=== PATIENT | male | born 1945 | race Caucasian/White ===

== ENCOUNTER 2021-01-03 09:19 | Inpatient (IN) | payer MEDICARE, SELFPAY ==
[2021-01-03] VITALS (66 sets, daily range): BP systolic 100–178; BP diastolic 56–92; PULSE 55–76; RESP 8–61; TEMP 36–38.4; O2SAT 97–100; BMI 21.9
--- NOTE | 2021-01-03 09:23 | DI.RAD.S_ITS ---
PROCEDURE: XR CHEST 1V INDICATIONS: intubation TECHNIQUE: One view of the chest was acquired. COMPARISON: [facility], , CHEST 1 VIEW, 06/26/2015, 10:54. FINDINGS: Surgical changes and devices: ETT tip is roughly 30 mm above the joshua. NGT is present, tip of which is in the gastric lumen. Lungs and pleura: Lungs are clear. No pleural effusions or pneumothorax. Mediastinum: Mediastinal contours appear normal. Heart size is normal. Bones and chest wall: No suspicious bony lesions. Overlying soft tissues appear unremarkable. IMPRESSION: No acute process. Dictated by: Anupama Lopez M.D. on 01/03/2021 at 9:46 Approved by: Anupama Lopez M.D. on 01/03/2021 at 9:47
--- NOTE | 2021-01-03 09:35 | ED_ITS ---
HPI - Overdose General Chief Complaint: Toxicology Problem Stated Complaint: Suicide attempt Time Seen by Provider: 01/03/21 09:21 Source: EMS Mode of arrival: EMS Limitations: physical limitation History of Present Illness HPI Narrative: Patient is a 75-year-old male who presents is are as a suicide attempt along with his . They both split a bottle of Xanax 0.5 mg he took his 15-16 tablets at around midnight and then went into the garage and turned on his car. The woke up, however he did not and she called 911. He has no prior history of depression or suicide attempt. Patient had a GCS of 6 on the scene and was immediately intubated. complaint: intentional overdose Related Data Home Medications Medication Instructions Recorded Confirmed No Known Home Medications 01/03/21 01/03/21 Allergies Allergy/AdvReac Type Severity Reaction Status Date / Time No Known Drug Allergies Allergy Unknown Unverified 01/15/18 12:34 Review of Systems Review of Systems ROS Unobtainable: Unobtainable due to medical condition Patient History Medical History (Updated 01/03/21 @ 18:37 by Nany Ventura MD) Hypertension Family History (Updated 01/03/21 @ 18:38 by Nany Ventura MD) Other Patient unable to provide medical history Social History household members: spouse Smoking Status: Unknown if ever smoked Smoking Status: Unknown if ever smoked Exam Initial Vital Signs Initial Vital Signs: Vital Signs Pulse Rate 66 01/03/21 09:20 Respiratory Rate 16 01/03/21 09:20 Gen.: The patient is intubated, unresponsive HEENT: Head is atraumatic face symmetric Neck: No JVD trachea midline Lungs: Breath sounds equal bilaterally good chest rise Cardiac: Regular rate and rhythm no murmur Abdomen: Soft nontender Extremities: Peripheral pulses intact no bony deformities Neurologic: Intubated Course Orders Ordered: ED Orders 01/03/21 10:37 Carboxyhemoglobin Stat Acetaminophen (Acetaminophen 650 Mg Supp) 650 mg OK Q6HR PRN PRN Reason: Fever Bisacodyl (Bisacodyl 10 Mg Supp) 10 mg OK DAILY PRN PRN Reason: Constipation Enoxaparin Sodium (Enoxaparin 40 Mg/0.4 Ml Syringe) 40 mg SUBCUT DAILY [facility] Last Admin: 01/03/21 14:22 Dose: 40 mg Documented by: FELIPE Sodium Chloride (Normal Saline 0.9%) 1,000 mls @ 150 mls/hr IV CONT SARA Last Infusion: 01/03/21 12:03 Dose: 150 mls/hr Documented by: Admin: 01/03/21 09:36 Dose: 150 mls/hr Documented by: JIM Dextrose/Sodium Chloride (Dextrose 5%-0.45% Ns) 1,000 mls @ 100 mls/hr IV CONT SARA Last Admin: 01/03/21 13:36 Dose: 100 mls/hr Documented by: FELIPE Fentanyl 1,000 mcg/ Dextrose 250 mls @ 12.145 mls/hr IV TITRATE SARA; Protocol Last Titration: 01/03/21 17:57 Dose: 0 mcg/kg/hr, 0 mls/hr Documented by: Titration: 01/03/21 16:08 Dose: 0.35 mcg/kg/hr, 6.073 mls/hr Documented by: Titration: 01/03/21 14:25 Dose: 0 mcg/kg/hr, 0 mls/hr Documented by: Titration: 01/03/21 14:13 Dose: 0.5 mcg/kg/hr, 8.675 mls/hr Documented by: Admin: 01/03/21 13:39 Dose: 0.7 mcg/kg/hr, 12.1 mls/hr Documented by: FELIPE Lorazepam 20 mg/ Sodium (Chloride) 100 mls @ 3.47 mls/hr IV TITRATE SARA; Protocol Last Titration: 01/03/21 17:58 Dose: 0 mg/kg/hr, 0 mls/hr Documented by: Titration: 01/03/21 17:41 Dose: 0.01 mg/kg/hr, 3.47 mls/hr Documented by: Titration: 01/03/21 14:25 Dose: 0 mg/kg/hr, 0 mls/hr Documented by: Admin: 01/03/21 12:30 Dose: 0.01 mg/kg/hr, 3.47 mls/hr Documented by: FELIPE Famotidine (Pepcid) 20 mg in 50 mls @ 200 mls/hr IV Q12HR SARA Propofol (Propofol) 1,000 mg in 100 mls @ 2.082 mls/hr IV TITRATE SARA; Protocol Last Titration: 01/03/21 19:03 Dose: 3.5 mcg/kg/min, 1.457 mls/hr Documented by: Admin: 01/03/21 16:14 Dose: 2.5 mcg/kg/min, 1.041 mls/hr Documented by: FELIPE Labetalol HCl (Labetalol 20 Mg/4 Ml Syringe) 10 mg IV Q4HR PRN PRN Reason: SBP over 170 Naloxone HCl (Naloxone 0.4 Mg/Ml Vial) 0.2 mg IV Q2MIN PRN PRN Reason: Opiate Reversal Discontinued Medications Fentanyl 1,000 mcg/ Dextrose 250 mls @ 12.145 mls/hr IV TITRATE SARA; Protocol Last Titration: 01/03/21 12:03 Dose: 0.7 mcg/kg/hr, 12.145 mls/hr Documented by: Admin: 01/03/21 10:10 Dose: 0.7 mcg/kg/hr, 12.145 mls/hr Documented by: JIM Lorazepam 20 mg/ Sodium (Chloride) 110 mls @ 3.817 mls/hr IV TITRATE SARA; Protocol Last Titration: 01/03/21 12:33 Dose: 0.01 mg/kg/hr, 3.8 mls/hr Documented by: Titration: 01/03/21 12:03 Dose: 0.01 mg/kg/hr, 3.817 mls/hr Documented by: Admin: 01/03/21 10:20 Dose: 0.01 mg/kg/hr, 3.817 mls/hr Documented by: JIM Vital Signs Vital signs: Vital Signs - 8 hr 01/03/21 09:24 01/03/21 09:32 01/03/21 09:35 Temperature 96.8 F L Pulse Rate 75 69 63 Respiratory Rate 16 22 29 H Blood Pressure 155/92 H 140/77 Pulse Oximetry 99 99 01/03/21 09:40 01/03/21 09:45 01/03/21 09:50 Temperature 97.3 F L Pulse Rate 64 65 61 Respiratory Rate 23 22 23 Blood Pressure 131/75 129/75 145/72 H Pulse Oximetry 99 99 99 01/03/21 09:55 Temperature 97.7 F Pulse Rate 62 Respiratory Rate 19 Blood Pressure 119/72 Pulse Oximetry 100 MDM - Overdose Lab Data Attestation: I reviewed the patient's lab results. Result diagrams: 01/03/21 13:17 01/03/21 13:17 Labs: Lab Results 01/03/21 01/03/21 01/03/21 Range/Units 09:31 09:35 09:35 WBC 9.6 (4.5-11.0) X10^3/uL RBC 3.89 L (4.5-5.9) X10^6/uL Hgb 12.8 L (13.5-17.5) g/dL Hct 38.1 L (41-53) % MCV 97.9 (80-100) fL MCH 32.9 (26-34) PG MCHC 33.6 (30-36) % RDW 12.6 (11.6-14.8) % Plt Count 171 (150-400) X10^3/uL Neut % (Auto) 87.7 H (50-75) % Lymph % (Auto) 5.0 L (25-40) % [facility] % (Auto) 6.9 (3-14) % Eos % (Auto) 0.1 L (2-4) % Baso % (Auto) 0.3 (0-2) % Neut # (Auto) 8400 H (1915-4393) /uL Lymph # (Auto) 500 L (0276-5948) /uL [facility] # (Auto) 700 (0-900) /uL Eos # (Auto) 0 (0-450) /uL Baso # (Auto) 0 (0-100) /uL ABG pH 7.39 (7.35-7.45) ABG pCO2 47.8 H (35-45) mmHg ABG pO2 563 H* (80-100) mmHg ABG HCO3 29 H (22-26) mmol/L ABG Total CO2 30 (21-31) mmol/L ABG O2 Saturation 100 (95-100) % ABG Base Excess 4.0 H (-2-2) mmol/L FiO2 100 Sodium (137-145) mmol/L Potassium (3.4-5.1) mmol/L Chloride (98-107) mmol/L Carbon Dioxide (22-32) mmol/L BUN (9-20) mg/dL Creatinine (0.66-1.25) mg/dL Estimated GFR (>60) mL/min BUN/Creatinine Ratio (6-22) Glucose (80-110) mg/dL Lactate (0.7-2.1) mmol/L Calcium (8.4-10.2) mg/dL Total Bilirubin (0.2-1.3) mg/dL AST (17-59) IU/L ALT (<50) IU/L Alkaline Phosphatase (38-126) U/L Total Creatine Kinase 100 (55-170) U/L CK-MB (CK-2) TNP CK-MB (CK-2) Rel Index TNP Troponin I < 0.012 (0.01-0.034) ng/mL Total Protein (6.3-8.2) g/dL Albumin (3.5-5.0) g/dL Globulin (1.7-4.1) g/dL Albumin/Globulin Ratio (1.0-2.8) Lipase 81 (23-300) U/L Salicylates (<20) mg/dL U Opiates 300ng/mL cut (Negative) Ur Oxycodone Screen (Negative) Urine Methadone Screen (Negative) Acetaminophen (10-30) ug/mL Ur Barbiturates Screen (Negative) U Tricyclic Antidepress (Negative) Ur Phencyclidine Scrn (Negative) Ur Amphetamines Screen (Negative) U Methamphetamines Scrn (Negative) Ur MDMA Scrn (Ecstasy) (Negative) U Benzodiazepines Scrn (Negative) Urine Cocaine Screen (Negative) U Marijuana (THC) Screen (Negative) Ethyl Alcohol ( - 10) mg/dL SARS-CoV-2 (PCR) (Negative) 01/03/21 01/03/21 01/03/21 Range/Units 09:35 09:44 09:44 WBC (4.5-11.0) X10^3/uL RBC (4.5-5.9) X10^6/uL Hgb (13.5-17.5) g/dL Hct (41-53) % MCV (80-100) fL MCH (26-34) PG MCHC (30-36) % RDW (11.6-14.8) % Plt Count (150-400) X10^3/uL Neut % (Auto) (50-75) % Lymph % (Auto) (25-40) % [facility] % (Auto) (3-14) % Eos % (Auto) (2-4) % Baso % (Auto) (0-2) % Neut # (Auto) (1437-3527) /uL Lymph # (Auto) (8257-6761) /uL [facility] # (Auto) (0-900) /uL Eos # (Auto) (0-450) /uL Baso # (Auto) (0-100) /uL ABG pH (7.35-7.45) ABG pCO2 (35-45) mmHg ABG pO2 (80-100) mmHg ABG HCO3 (22-26) mmol/L ABG Total CO2 (21-31) mmol/L ABG O2 Saturation (95-100) % ABG Base Excess (-2-2) mmol/L FiO2 Sodium 136 L (137-145) mmol/L Potassium 4.7 (3.4-5.1) mmol/L Chloride 105 (98-107) mmol/L Carbon Dioxide 26 (22-32) mmol/L BUN 19 (9-20) mg/dL Creatinine 0.96 (0.66-1.25) mg/dL Estimated GFR > 60.0 (>60) mL/min BUN/Creatinine Ratio 19.8 (6-22) Glucose 118 H (80-110) mg/dL Lactate (0.7-2.1) mmol/L Calcium 9.4 (8.4-10.2) mg/dL Total Bilirubin 0.6 (0.2-1.3) mg/dL AST 26 (17-59) IU/L ALT 14 (<50) IU/L Alkaline Phosphatase 66 (38-126) U/L Total Creatine Kinase (55-170) U/L CK-MB (CK-2) CK-MB (CK-2) Rel Index Troponin I (0.01-0.034) ng/mL Total Protein 6.8 (6.3-8.2) g/dL Albumin 4.0 (3.5-5.0) g/dL Globulin 2.8 (1.7-4.1) g/dL Albumin/Globulin Ratio 1.4 (1.0-2.8) Lipase (23-300) U/L Salicylates < 1.0 (<20) mg/dL U Opiates 300ng/mL cut (Negative) Ur Oxycodone Screen (Negative) Urine Methadone Screen (Negative) Acetaminophen < 10 L (10-30) ug/mL Ur Barbiturates Screen (Negative) U Tricyclic Antidepress (Negative) Ur Phencyclidine Scrn (Negative) Ur Amphetamines Screen (Negative) U Methamphetamines Scrn (Negative) Ur MDMA Scrn (Ecstasy) (Negative) U Benzodiazepines Scrn (Negative) Urine Cocaine Screen (Negative) U Marijuana (THC) Screen (Negative) Ethyl Alcohol < 10 ( - 10) mg/dL SARS-CoV-2 (PCR) Negative Negative (Negative) 01/03/21 01/03/21 Range/Units 09:49 09:53 WBC (4.5-11.0) X10^3/uL RBC (4.5-5.9) X10^6/uL Hgb (13.5-17.5) g/dL Hct (41-53) % MCV (80-100) fL MCH (26-34) PG MCHC (30-36) % RDW (11.6-14.8) % Plt Count (150-400) X10^3/uL Neut % (Auto) (50-75) % Lymph % (Auto) (25-40) % [facility] % (Auto) (3-14) % Eos % (Auto) (2-4) % Baso % (Auto) (0-2) % Neut # (Auto) (6253-7089) /uL Lymph # (Auto) (5846-0990) /uL [facility] # (Auto) (0-900) /uL Eos # (Auto) (0-450) /uL Baso # (Auto) (0-100) /uL ABG pH (7.35-7.45) ABG pCO2 (35-45) mmHg ABG pO2 (80-100) mmHg ABG HCO3 (22-26) mmol/L ABG Total CO2 (21-31) mmol/L ABG O2 Saturation (95-100) % ABG Base Excess (-2-2) mmol/L FiO2 Sodium (137-145) mmol/L Potassium (3.4-5.1) mmol/L Chloride (98-107) mmol/L Carbon Dioxide (22-32) mmol/L BUN (9-20) mg/dL Creatinine (0.66-1.25) mg/dL Estimated GFR (>60) mL/min BUN/Creatinine Ratio (6-22) Glucose (80-110) mg/dL Lactate 0.9 (0.7-2.1) mmol/L Calcium (8.4-10.2) mg/dL Total Bilirubin (0.2-1.3) mg/dL AST (17-59) IU/L ALT (<50) IU/L Alkaline Phosphatase (38-126) U/L Total Creatine Kinase (55-170) U/L CK-MB (CK-2) CK-MB (CK-2) Rel Index Troponin I (0.01-0.034) ng/mL Total Protein (6.3-8.2) g/dL Albumin (3.5-5.0) g/dL Globulin (1.7-4.1) g/dL Albumin/Globulin Ratio (1.0-2.8) Lipase (23-300) U/L Salicylates (<20) mg/dL U Opiates 300ng/mL cut Negative (Negative) Ur Oxycodone Screen Negative (Negative) Urine Methadone Screen Negative (Negative) Acetaminophen (10-30) ug/mL Ur Barbiturates Screen Negative (Negative) U Tricyclic Antidepress Negative (Negative) Ur Phencyclidine Scrn Negative (Negative) Ur Amphetamines Screen Negative (Negative) U Methamphetamines Scrn Negative (Negative) Ur MDMA Scrn (Ecstasy) Negative (Negative) U Benzodiazepines Scrn Positive H (Negative) Urine Cocaine Screen Negative (Negative) U Marijuana (THC) Screen Negative (Negative) Ethyl Alcohol ( - 10) mg/dL SARS-CoV-2 (PCR) (Negative) Imaging Data Chest x-ray: Radiologist's Impression: PROCEDURE: XR CHEST 1V INDICATIONS: intubation TECHNIQUE: One view of the chest was acquired. COMPARISON: [facility], CHEST 1 VIEW, 06/26/2015, 10:54. FINDINGS: Surgical changes and devices: ETT tip is roughly 30 mm above the joshua. NGT is present, tip of which is in the gastric lumen. Lungs and pleura: Lungs are clear. No pleural effusions or pneumothorax. Mediastinum: Mediastinal contours appear normal. Heart size is normal. Bones and chest wall: No suspicious bony lesions. Overlying soft tissues appear unremarkable. IMPRESSION: No acute process. Dictated by: Anupama Lopez M.D. on 01/03/2021 at 9:46 ECG Data Attestation: I personally reviewed and interpreted this ECG as follows: Prior ECG tracings: not available for review Interpretation: Normal sinus rhythm rate 65 p.r. interval 154 QRS is. QTC [address] changes similar to previous EKG in 2015 MDM Narrative Medical decision making narrative: The patient is intubated in median placed on 100% FiO2. His finger carboxyhemoglobin is initially 9 point a glioma as high as 12. He certainly has a mixed picture of carbon monoxide poisoning and benzodiazepine overdose. Poison control was contacted they recommended talking to Eve shahid in regards to hyperbaric therapy,. Dr. [place], Eve shahid hyperbaric physician updated on patient's symptoms test results. At this time it is not recommended that patient have hyperbaric therapy and it is recommended that he continue 100% FiO2 for 4-6 hours and then have it weaned. Dr. ventura updated on patient's symptoms and recommendations and happily accepts patient Patient initially was placed on propofol however you can have seizures with carbon monoxide poisoning so he was changed to fentanyl and Ativan drip. Critical Care Time Critical Care Time Critical Care Time: Yes Total Critical Care Time: 60 Attestation: The high probability of a clinically significant, sudden or life threatening deterioration of the [cardiovascular] system(s) required my full and direct attention, intervention and personal management. The aggregate critical care time was [45] minutes. This time is in addition to time spent performing reported procedures but includes the following: [x] Data Review and interpretation [x] Patient assessment and monitoring of vital signs [x] Documentation [x] Medication orders and management Discharge Plan Departure Patient Disposition: Admitted As Inpatient Clinical Impression: Suicide attempt Carbon monoxide poisoning, suicide attempt Qualifiers: Encounter type: initial encounter Qualified Code(s): T58.92XA - Toxic effect of carbon monoxide from unspecified source, intentional self-harm, initial encounter Benzodiazepine overdose Qualifiers: Encounter type: initial encounter Injury intent: intentional self-harm Qualified Code(s): T42.4X2A - Poisoning by benzodiazepines, intentional self- harm, initial encounter Admit Date/Time: 01/03/21 10:33 Admit Provider: Nany Ventura
[2021-01-03] MEDS: SODIUM CHLORIDE 0.9% 1,000 ML 150 ML IV (09:36)
[2021-01-03] MEDS: propofoL 1,000 MG/100 ML VIAL 4.1 MG IV (09:36)
[2021-01-03 09:40] LABS: Add Manual Diff / Slide Review NO; Basophils Absolute Auto 0 /uL (0-100); Basophils Percent Auto 0.3 % (0-2); Eosinophils Absolute Auto 0 /uL (0-450); Eosinophils Percent Auto 0.1 % (2-4); Hematocrit 38.1 % (41-53); Hemoglobin 12.8 g/dL (13.5-17.5); Lymphocytes Absolute Auto 500 /uL (1100-4500); Mean Corpuscular HGB Conc 33.6 % (30-36); Mean Corpuscular Hemoglobin 32.9 PG (26-34); Mean Corpuscular Volume 97.9 fL (80-100); Monocytes Absolute Auto 700 /uL (0-900); Monocytes Percent Auto 6.9 % (3-14); Neutrophils Absolute Auto 8400 /uL (1500-7000); Neutrophils Percent Auto 87.7 % (50-75); Platelet Count 171 X10^3/uL (150-400); Red Blood Cell Count 3.89 X10^6/uL (4.5-5.9); Red Cell Distribution Width 12.6 % (11.6-14.8); White Blood Cell Count 9.6 X10^3/uL (4.5-11.0)
[2021-01-03 09:41] LABS: Fractionated Inspired Oxygen 100; HCO3 ABG 29 mmol/L (22-26); Oxygen Saturation ABG 100 % (95-100); PCO2 ABG 47.8 mmHg (35-45); PO2 ABG 563 mmHg (80-100); TCO2 ABG 30 mmol/L (21-31); pH ABG 7.39 (7.35-7.45)
[2021-01-03 10:00] LABS: Acetaminophen < 10 ug/mL (10-30); Alanine Aminotransferase 14 IU/L (<50); Albumin Globulin Ratio 1.4 (1.0-2.8); Alkaline Phosphatase 66 U/L (38-126); Aspartate Aminotransferase 26 IU/L (17-59); BUN Creatinine Ratio 19.8 (6-22); Bilirubin Total 0.6 mg/dL (0.2-1.3); Blood Urea Nitrogen 19 mg/dL (9-20); Calcium 9.4 mg/dL (8.4-10.2); Carbon Dioxide 26 mmol/L (22-32); Chloride 105 mmol/L (98-107); Creatine Kinase 100 U/L (55-170); Estimated Glomerular Filt Rate > 60.0 mL/min (>60); Ethanol (ETOH) < 10 mg/dL; Globulin 2.8 g/dL (1.7-4.1); Glucose 118 mg/dL (80-110); HEMOLYSIS < 15 (0-50); Lipase 81 U/L (23-300); Potassium 4.7 mmol/L (3.4-5.1); Salicylate < 1.0 mg/dL (<20); Sodium 136 mmol/L (137-145); Total Protein 6.8 g/dL (6.3-8.2)
[2021-01-03 10:01] LABS: COVID19 -Nasal RAPID Negative (Negative)
[2021-01-03 10:04] LABS: Ur Creatinine Normal (Normal); Ur Specific Gravity Normal (Normal); Urine Tetrahydrocannabinol Negative (Negative); Urine pH Normal (Normal)
[2021-01-03 10:05] LABS: UR Morphine/Opiate cutoff 300 Negative (Negative); Urine Amphetamines Negative (Negative); Urine Barbiturates Negative (Negative); Urine Benzodiazepines Positive (Negative); Urine Cocaine Negative (Negative); Urine MDMA Negative (Negative); Urine Methadone Negative (Negative); Urine Methamphetamines Negative (Negative); Urine Oxycodone Negative (Negative); Urine Phencyclidine Negative (Negative); Urine Tricyclic Antidepressant Negative (Negative)
[2021-01-03] MEDS: fentaNYL 1,000 MCG in DEXTROSE 5% IN WATER 230 ML 12.145 ML IV (10:10)
[2021-01-03 10:11] LABS: Troponin I < 0.012 ng/mL (0.01-0.034)
[2021-01-03 10:20] LABS: Lactate (Lactic Acid) 0.9 mmol/L (0.7-2.1)
[2021-01-03] MEDS: LORazepam 20 MG in SODIUM CHLORIDE 0.9% 100 ML IV (10:20)
[2021-01-03 10:40] LABS: COVID19 - ADMIT (NP swab/PCR) Negative (Negative)
--- NOTE | 2021-01-03 11:02 | RT ---
Patient intubated on arrival 8.0 tube, 25 at the lip verified by xray, and capnography. Initial vent settings Vt 420, R 16, FIO2 100%, PEEP +5, I-time 1:3.7, PIP 15, MAP 8. Arterial blood gas obtained per right radial PH 7.39, CO2 47, PO2 563, HCO3 29, BE 4.0. Rate increased to 18 per CO2 on ABG. Lab judy venous blood to send to [facility] for carbon monoxide sample per [facility] lab request ([facility] lab prefers venous blood for stability) at 10:20 right hand, sample put on ice and sent with lab carrier. [facility] respiratory department Brendon contacted to follow through with lab on results, given ED fax and RT cell to report results.
--- NOTE | 2021-01-03 11:15 | PC.NURSE ---
Propofol titrated down to 5 mcg/kg/hr @ 1045 hrs.
--- NOTE | 2021-01-03 11:41 | PC.NURSE ---
Propofol titrated down to 2.5 mcg/kg/hr @ 1142 hrs.
--- NOTE | 2021-01-03 11:43 | PC.NURSE ---
Received permission from Cata to call her family. Contacted Opal (dtr) and Juan (son). Updated them on pt condition. Opal is en route.
--- NOTE | 2021-01-03 11:52 | CM.DPC ---
Addendum entered by MATEO Soriano 01/05/21 08:48: Chart Review 4..; This note appears to be made in error. JW Original Note: DCP Discharge Home Per MD, pt is medically stable to d/c home today with no identified barriers to discharge. Per RN, no concerns at this time and Dtr to provide transport home today. Due to triage needs and no identified concerns, SW unable to meet again with pt prior to d/c home. Plan: Patient to d/c home today via Dtr POV and no further SW needs at this time. MATEO Lee
--- NOTE | 2021-01-03 12:08 | PC.NURSE ---
poison controll updated
[2021-01-03] MEDS: LORazepam 20 MG in SODIUM CHLORIDE 0.9% 90 ML IV (12:30)
[2021-01-03 13:34] LABS: Add Manual Diff / Slide Review NO; Basophils Absolute Auto 0 /uL (0-100); Basophils Percent Auto 0.5 % (0-2); Eosinophils Absolute Auto 0 /uL (0-450); Eosinophils Percent Auto 0.1 % (2-4); Hemoglobin 12.1 g/dL (13.5-17.5); Lymphocytes Absolute Auto 500 /uL (1100-4500); Mean Corpuscular HGB Conc 33.6 % (30-36); Mean Corpuscular Hemoglobin 32.9 PG (26-34); Mean Corpuscular Volume 97.9 fL (80-100); Monocytes Absolute Auto 600 /uL (0-900); Monocytes Percent Auto 6.5 % (3-14); Neutrophils Absolute Auto 8800 /uL (1500-7000); Neutrophils Percent Auto 87.9 % (50-75); Platelet Count 156 X10^3/uL (150-400); Red Blood Cell Count 3.68 X10^6/uL (4.5-5.9); Red Cell Distribution Width 12.6 % (11.6-14.8)
[2021-01-03] MEDS: DEXTROSE 5%-0.45% NS 1,000 ML 100 ML IV ×2 (13:36→23:26)
[2021-01-03] MEDS: fentaNYL 1,000 MCG in DEXTROSE 5% IN WATER 230 ML 12.1 ML IV (13:39)
--- NOTE | 2021-01-03 13:45 | PC.NURSE ---
Addendum entered by Tamika Argueta R.N. 01/03/21 16:10: Pt did not tolerate CPAP trial and placed back on vent settings. Propofol restarted @ 1600 and Fent restarted @ 0.35mcg/kg/hr Addendum entered by Tamika Argueta R.N. 01/03/21 15:28: All sedation off at 1425, Update to Dr Ventura, Pt with increasing HTN. Weaning trial with RT started @ 1520 Addendum entered by Tamika Argueta R.N. 01/03/21 14:24: 1400-Fentanyl titration down to 0.5mcg/kg/hr, plan for sedation vacation with RT @ 1430 Original Note: Admission Pt arrived from ER on vent, sedated, after suicide attempt with spouse. ETT 8.0 25 cm at the lip. Vent Settings 100% Fio2 RR 18 TV 420 Peep 5. Pt has propofol going @ 2.5mcg/kg/min Lorazepam 0.01mg/kg/hr Fent @ 0.7mcg/kg/hr Tele SB. Pt has BUE in restraints, tolerating well. Slide board to move to bed. PIV x2, skin check completed with BEATRIZ Nugent. OG to LIS. Daughter arrived from ER, update provided with POC, hyperoxygenation, and planned sedation vacation and Fio2 reduction @ 1430. BA on
[2021-01-03 13:59] LABS: NT-proBNP (BNP-Adult 18+) 46 pg/mL (<125)
[2021-01-03 14:17] LABS: HCO3 ABG 28 mmol/L (22-26); PCO2 ABG 41.7 mmHg (35-45); PO2 ABG 611 mmHg (80-100); TCO2 ABG 29 mmol/L (21-31); pH ABG 7.44 (7.35-7.45)
[2021-01-03 14:18] LABS: Fractionated Inspired Oxygen 100; Oxygen Saturation ABG 100 % (95-100)
[2021-01-03] MEDS: ENOXAPARIN 40 MG/0.4 ML SYRINGE SUBCUT (14:22)
[2021-01-03 14:57] LABS: Alanine Aminotransferase 13 IU/L (<50); Albumin 3.5 g/dL (3.5-5.0); Albumin Globulin Ratio 1.3 (1.0-2.8); Alkaline Phosphatase 60 U/L (38-126); Aspartate Aminotransferase 24 IU/L (17-59); BUN Creatinine Ratio 22.1 (6-22); Bilirubin Total 0.6 mg/dL (0.2-1.3); Blood Urea Nitrogen 19 mg/dL (9-20); Calcium 8.7 mg/dL (8.4-10.2); Carbon Dioxide 26 mmol/L (22-32); Chloride 108 mmol/L (98-107); Estimated Glomerular Filt Rate > 60.0 mL/min (>60); Globulin 2.7 g/dL (1.7-4.1); Glucose 113 mg/dL (80-110); HEMOLYSIS < 15 (0-50); Potassium 4.5 mmol/L (3.4-5.1); Sodium 138 mmol/L (137-145); Total Protein 6.2 g/dL (6.3-8.2)
[2021-01-03] MEDS: propofoL 1,000 MG/100 ML VIAL 1.041 MG IV (16:14)
--- NOTE | 2021-01-03 18:35 | PM.HP.1 ---
History of Present Illness History of Present Illness Date Patient Seen: 01/03/21 Chief complaint: Suicide attempt Narrative: The patient is a 75-year-old male with no prior medical history who split a bottle of Xanax with his last evening went into his car and turned on the car in attempted suicide. Patient's woke up but the patient was unresponsive. 911 was called in the patient was intubated at the scene. He has remained unresponsive. The patient is unable to provide any history. His is not here either. Patient has no prior history of psychiatric illness, no prior history of medical conditions that were aware of. Patient was found to have a carbon monoxide level of 10%. After consultation with [facility] their recommendation was to ventilate him with 100% oxygen for 4 hours and then titrate oxygen down. The patient is admitted to the ICU intubated and unresponsive. Patient History Medical History (Updated 01/03/21 @ 18:37 by Nany Ventura MD) Hypertension Family & Social History Family History (Updated 01/03/21 @ 18:38 by Nany Ventura MD) Other Patient unable to provide medical history Social History: household members spouse Prior Living Arrangements House Safety & Behavioral: Feels Safe in Current Unwilling to Answer Environment Been Physically Hurt or Unwilling to Answer Threatened By a Person Suicide Plan Description High Lethality Tobacco & Substance use: Smoking Status Unknown if ever smoked Substance Use Type unknown Meds Home Medications and Allergies Home Medications Medication Instructions Recorded Confirmed Type No Known Home Medications 01/03/21 01/03/21 History Allergies Allergy/AdvReac Type Severity Reaction Status Date / Time No Known Drug Allergies Allergy Unknown Unverified 01/15/18 12:34 Review of Systems Review of Systems ROS: Yes unobtainable due to mental status Exam Vital Signs (past 8 hours): - 01/03/21 10:40 01/03/21 10:45 01/03/21 10:50 Temperature 97.7 F 97.7 F 97.7 F Pulse Rate 58 L 59 L 59 L Respiratory Rate 18 18 20 Blood Pressure 119/71 118/70 121/73 Pulse Oximetry 100 100 100 01/03/21 10:55 01/03/21 11:00 01/03/21 11:05 Temperature 97.7 F 97.5 F L 97.5 F L Pulse Rate 59 L 58 L 59 L Respiratory Rate 18 18 18 Blood Pressure 131/79 130/71 130/76 Pulse Oximetry 100 100 100 01/03/21 11:10 01/03/21 11:15 01/03/21 11:20 Temperature 97.5 F L 97.5 F L 97.5 F L Pulse Rate 58 L 58 L 58 L Respiratory Rate 18 18 18 Blood Pressure 125/74 124/73 127/74 Pulse Oximetry 100 100 100 01/03/21 11:25 01/03/21 11:30 01/03/21 11:35 Temperature 97.5 F L 97.3 F L 97.3 F L Pulse Rate 57 L 58 L 58 L Respiratory Rate 18 18 18 Blood Pressure 129/77 134/74 133/73 Pulse Oximetry 100 100 100 01/03/21 11:40 01/03/21 11:45 01/03/21 11:50 Temperature 97.3 F L 97.3 F L 97.3 F L Pulse Rate 58 L 57 L 58 L Respiratory Rate 18 18 18 Blood Pressure 132/76 130/76 132/80 Pulse Oximetry 100 100 100 01/03/21 12:35 01/03/21 12:44 01/03/21 12:48 Temperature 97.2 F L 97.2 F L 97.2 F L Pulse Rate 59 L 56 L 57 L Respiratory Rate 17 17 17 Blood Pressure 162/86 H 153/79 H Pulse Oximetry 100 100 100 01/03/21 12:51 01/03/21 13:00 01/03/21 13:30 Temperature 97.2 F L 97.2 F L 97.0 F L Pulse Rate 55 L 56 L 55 L Respiratory Rate 16 16 16 Blood Pressure 140/77 139/82 Pulse Oximetry 100 100 100 01/03/21 14:00 01/03/21 14:30 01/03/21 15:00 Temperature 97.0 F L 97.0 F L 97.0 F L Pulse Rate 56 L 60 61 Respiratory Rate 16 16 16 Blood Pressure 166/87 H 170/83 H Pulse Oximetry 100 99 99 01/03/21 15:30 01/03/21 16:00 01/03/21 16:30 Temperature 97.2 F L 97.7 F 98.1 F Pulse Rate 63 64 62 Respiratory Rate 61 H 29 H 56 H Blood Pressure 171/84 H Pulse Oximetry 98 99 99 01/03/21 17:00 01/03/21 17:30 01/03/21 18:00 Temperature 98.4 F 98.6 F 99.0 F Pulse Rate 64 61 62 Respiratory Rate 43 H 49 H 24 Blood Pressure 178/87 H 164/77 H Pulse Oximetry 99 99 99 Fraction of Inspired Oxygen 100 Oxygen Delivery Method Mechanical Ventilation Oxygen Flow Rate 100 Narrative Exam Narrative: Intubated sedated elderly male unresponsive HEENT: Normocephalic atraumatic, pupils are pinpoint, patient is sedated Oropharynx patient is intubated Lungs: Normal breath sounds bilaterally Cardiac exam: Regular rate and rhythm normal S1-S2 Abdomen: Soft nontender nondistended no hepatosplenomegaly Extremities: No edema Neuro exam: Unable to obtain as the patient is sedated and paralyzed on the ventilator Objective Labs Result Diagrams: 01/03/21 13:17 01/03/21 13:17 Labs: Laboratory Results - last 24 hr 01/03/21 01/03/21 01/03/21 09:31 09:35 09:35 WBC 9.6 RBC 3.89 L Hgb 12.8 L Hct 38.1 L MCV 97.9 MCH 32.9 MCHC 33.6 RDW 12.6 Plt Count 171 Neut % (Auto) 87.7 H Lymph % (Auto) 5.0 L [place] % (Auto) 6.9 Eos % (Auto) 0.1 L Baso % (Auto) 0.3 Neut # (Auto) 8400 H Lymph # (Auto) 500 L [place] # (Auto) 700 Eos # (Auto) 0 Baso # (Auto) 0 ABG pH 7.39 ABG pCO2 47.8 H ABG pO2 563 H* ABG HCO3 29 H ABG Total CO2 30 ABG O2 Saturation 100 ABG Base Excess 4.0 H FiO2 100 Sodium Potassium Chloride Carbon Dioxide BUN Creatinine Estimated GFR BUN/Creatinine Ratio Glucose Lactate Calcium Total Bilirubin AST ALT Alkaline Phosphatase Total Creatine Kinase 100 CK-MB (CK-2) TNP CK-MB (CK-2) Rel Index TNP Troponin I < 0.012 NT-Pro-B Natriuret Pep Total Protein Albumin Globulin Albumin/Globulin Ratio Lipase 81 Salicylates U Opiates 300ng/mL cut Ur Oxycodone Screen Urine Methadone Screen Acetaminophen Ur Barbiturates Screen U Tricyclic Antidepress Ur Phencyclidine Scrn Ur Amphetamines Screen U Methamphetamines Scrn Ur MDMA Scrn (Ecstasy) U Benzodiazepines Scrn Urine Cocaine Screen U Marijuana (THC) Screen Ethyl Alcohol SARS-CoV-2 (PCR) 01/03/21 01/03/21 01/03/21 09:35 09:44 09:44 WBC RBC Hgb Hct MCV MCH MCHC RDW Plt Count Neut % (Auto) Lymph % (Auto) [place] % (Auto) Eos % (Auto) Baso % (Auto) Neut # (Auto) Lymph # (Auto) [place] # (Auto) Eos # (Auto) Baso # (Auto) ABG pH ABG pCO2 ABG pO2 ABG HCO3 ABG Total CO2 ABG O2 Saturation ABG Base Excess FiO2 Sodium 136 L Potassium 4.7 Chloride 105 Carbon Dioxide 26 BUN 19 Creatinine 0.96 Estimated GFR > 60.0 BUN/Creatinine Ratio 19.8 Glucose 118 H Lactate Calcium 9.4 Total Bilirubin 0.6 AST 26 ALT 14 Alkaline Phosphatase 66 Total Creatine Kinase CK-MB (CK-2) CK-MB (CK-2) Rel Index Troponin I NT-Pro-B Natriuret Pep Total Protein 6.8 Albumin 4.0 Globulin 2.8 Albumin/Globulin Ratio 1.4 Lipase Salicylates < 1.0 U Opiates 300ng/mL cut Ur Oxycodone Screen Urine Methadone Screen Acetaminophen < 10 L Ur Barbiturates Screen U Tricyclic Antidepress Ur Phencyclidine Scrn Ur Amphetamines Screen U Methamphetamines Scrn Ur MDMA Scrn (Ecstasy) U Benzodiazepines Scrn Urine Cocaine Screen U Marijuana (THC) Screen Ethyl Alcohol < 10 SARS-CoV-2 (PCR) Negative Negative 01/03/21 01/03/21 01/03/21 09:49 09:53 13:17 WBC 10.0 RBC 3.68 L Hgb 12.1 L Hct 36.0 L MCV 97.9 MCH 32.9 MCHC 33.6 RDW 12.6 Plt Count 156 Neut % (Auto) 87.9 H Lymph % (Auto) 5.0 L [place] % (Auto) 6.5 Eos % (Auto) 0.1 L Baso % (Auto) 0.5 Neut # (Auto) 8800 H Lymph # (Auto) 500 L [place] # (Auto) 600 Eos # (Auto) 0 Baso # (Auto) 0 ABG pH ABG pCO2 ABG pO2 ABG HCO3 ABG Total CO2 ABG O2 Saturation ABG Base Excess FiO2 Sodium Potassium Chloride Carbon Dioxide BUN Creatinine Estimated GFR BUN/Creatinine Ratio Glucose Lactate 0.9 Calcium Total Bilirubin AST ALT Alkaline Phosphatase Total Creatine Kinase CK-MB (CK-2) CK-MB (CK-2) Rel Index Troponin I NT-Pro-B Natriuret Pep Total Protein Albumin Globulin Albumin/Globulin Ratio Lipase Salicylates U Opiates 300ng/mL cut Negative Ur Oxycodone Screen Negative Urine Methadone Screen Negative Acetaminophen Ur Barbiturates Screen Negative U Tricyclic Antidepress Negative Ur Phencyclidine Scrn Negative Ur Amphetamines Screen Negative U Methamphetamines Scrn Negative Ur MDMA Scrn (Ecstasy) Negative U Benzodiazepines Scrn Positive H Urine Cocaine Screen Negative U Marijuana (THC) Screen Negative Ethyl Alcohol SARS-CoV-2 (PCR) 01/03/21 01/03/21 13:17 13:17 WBC RBC Hgb Hct MCV MCH MCHC RDW Plt Count Neut % (Auto) Lymph % (Auto) [place] % (Auto) Eos % (Auto) Baso % (Auto) Neut # (Auto) Lymph # (Auto) [place] # (Auto) Eos # (Auto) Baso # (Auto) ABG pH ABG pCO2 ABG pO2 ABG HCO3 ABG Total CO2 ABG O2 Saturation ABG Base Excess FiO2 Sodium 138 Potassium 4.5 Chloride 108 H Carbon Dioxide 26 BUN 19 Creatinine 0.86 Estimated GFR > 60.0 BUN/Creatinine Ratio 22.1 H Glucose 113 H Lactate Calcium 8.7 Total Bilirubin 0.6 AST 24 ALT 13 Alkaline Phosphatase 60 Total Creatine Kinase CK-MB (CK-2) CK-MB (CK-2) Rel Index Troponin I NT-Pro-B Natriuret Pep 46 Total Protein 6.2 L Albumin 3.5 Globulin 2.7 Albumin/Globulin Ratio 1.3 Lipase Salicylates U Opiates 300ng/mL cut Ur Oxycodone Screen Urine Methadone Screen Acetaminophen Ur Barbiturates Screen U Tricyclic Antidepress Ur Phencyclidine Scrn Ur Amphetamines Screen U Methamphetamines Scrn Ur MDMA Scrn (Ecstasy) U Benzodiazepines Scrn Urine Cocaine Screen U Marijuana (THC) Screen Ethyl Alcohol SARS-CoV-2 (PCR) Assessment & Plan Assessment & Plan narrative: 75-year-old male admitted to the hospital following a suicide attempt, secondary to an overdose of benzodiazepines. The patient also had carbon monoxide poisoning as a result of the attempt -carboxyhemoglobin level of 10%, likely related to suicided -continue oxygen at 100% for 4 hours -will taper oxygen following this, will discontinue propofol fall fentanyl and Ativan an attempt weaning protocol -patient will continue on IV hydration for now -chest x-ray negative will repeat in the morning -Will pain head CT to rule out an acute intracranial process 2. Patient is hypertensive -will start antihypertensive treatment 3. Suicidal ideation -if the patient can be extubated will obtain psychiatry consultation 4. Patient will be placed on DVT prophylaxis 5. Patient found to be unresponsive, felt to have probable respiratory failure due to suicide attempt -will continue ventilatory support -patient is unable to be extubated His surrogate decision maker is his who is currently under psychiatric care Patient is a full code He is admitted as an inpatient as he will likely be here greater than 48 hours and needs acute inpatient care Quality VTE Deep Vein Thrombosis/Pulmonary Embolism Present on Admission: No
--- NOTE | 2021-01-03 20:56 | PC.NURSE ---
Addendum entered by Jovanna Anders R.N. 01/03/21 21:14: Spoke to Poison control for update on pt status, will call again after 0100 for update Original Note: Evening shift note: Pt Ventilated after suicide attempt, vent settings FiO2 21% RR 16 PEEP 5 Tidal volume 420, SpO2 100%, sedated on Propofol infusing at 3.3mcg/kg/min,only per Dr. Ventura to prevent pt from becoming overly sedated, Fentanyl and Ativan gtt paused at this time. Tele SR, BP in 140's with a map of 106, bilateral wrist restraints in place at this time, pt tolerating well. OG to LIS, repositioned Q2, bed low and locked, will continue to monitor.
[2021-01-03] MEDS: ACETAMINOPHEN 650 MG SUPP PR (22:07)
[2021-01-03] MEDS: LORazepam 20 MG in SODIUM CHLORIDE 0.9% 90 ML 10.41 ML IV (23:13)
[2021-01-04] VITALS (41 sets, daily range): BP systolic 112–185; BP diastolic 56–92; PULSE 51–89; RESP 0–28; TEMP 36.8–38.4; O2SAT 84–100
[2021-01-04] MEDS: FAMOTIDINE 20 MG/50 ML PIGGYBACK 200 MG IV ×2 (00:34→12:43)
--- NOTE | 2021-01-04 01:25 | PC.NURSE ---
Addendum entered by Cecille Lopez R.N. 01/04/21 07:26: Patient remains sedated, propofol at 5mcg/min, Fentanyl titrated down to 0.3mcg/min by am, and lorazepam off since 0430. CXR done, labs drawn. Original Note: Machine Tool Rebuilder Note-Received patient at 2330, sedated with propofol at 5mcg/min, Fentanyl at 0.5mcg/min, and lorazepam at 0.03mg/hr. No change to ventilator settings from previous shift, SpO2 99%, RR 16 with vent, core temp 99.7, SB/SR 55-65, BP 112/56(78). Soft wrist restraints in place to keep patient from pulling at lines/tubes, no signs of injury.
[2021-01-04 04:52] LABS: Add Manual Diff / Slide Review NO; Basophils Absolute Auto 0 /uL (0-100); Basophils Percent Auto 0.4 % (0-2); Eosinophils Absolute Auto 100 /uL (0-450); Eosinophils Percent Auto 0.6 % (2-4); Hematocrit 34.2 % (41-53); Hemoglobin 11.6 g/dL (13.5-17.5); Lymphocytes Absolute Auto 1000 /uL (1100-4500); Lymphocytes Percent Auto 11.6 % (25-40); Mean Corpuscular Hemoglobin 33.1 PG (26-34); Mean Corpuscular Volume 97.3 fL (80-100); Monocytes Absolute Auto 1200 /uL (0-900); Monocytes Percent Auto 13.6 % (3-14); Neutrophils Absolute Auto 6500 /uL (1500-7000); Neutrophils Percent Auto 73.8 % (50-75); Platelet Count 133 X10^3/uL (150-400); Red Blood Cell Count 3.52 X10^6/uL (4.5-5.9); Red Cell Distribution Width 12.6 % (11.6-14.8); White Blood Cell Count 8.8 X10^3/uL (4.5-11.0)
[2021-01-04 04:57] LABS: Alanine Aminotransferase 13 IU/L (<50); Albumin Globulin Ratio 1.3 (1.0-2.8); Alkaline Phosphatase 47 U/L (38-126); Aspartate Aminotransferase 21 IU/L (17-59); BUN Creatinine Ratio 17.1 (6-22); Bilirubin Total 0.9 mg/dL (0.2-1.3); Blood Urea Nitrogen 13 mg/dL (9-20); Calcium 8.5 mg/dL (8.4-10.2); Carbon Dioxide 25 mmol/L (22-32); Chloride 107 mmol/L (98-107); Estimated Glomerular Filt Rate > 60.0 mL/min (>60); Globulin 2.4 g/dL (1.7-4.1); Glucose 123 mg/dL (80-110); HEMOLYSIS 19 (0-50); Potassium 3.7 mmol/L (3.4-5.1); Sodium 136 mmol/L (137-145); Total Protein 5.4 g/dL (6.3-8.2)
--- NOTE | 2021-01-04 06:30 | DI.RAD.S_ITS ---
PROCEDURE: XR CHEST 1V INDICATIONS: intubated TECHNIQUE: One view of the chest was acquired. COMPARISON: [facility], CR, XR CHEST 1V, 01/03/2021, 9:25. FINDINGS: Surgical changes and devices: Endotracheal tube is approximately 1.3 cm superior to the joshua. Nasogastric tube is present with distal tip not fully included within the field of view, although projecting below the left hemidiaphragm. Lungs and pleura: Lungs are clear. No pleural effusions or pneumothorax. Mediastinum: Mediastinal contours appear normal. Heart size is enlarged. Bones and chest wall: No suspicious bony lesions. Overlying soft tissues appear unremarkable. IMPRESSION: Support lines as above. No consolidations or effusions. Dictated by: Padmaja Go M.D. on 01/04/2021 at 7:35 Approved by: Padmaja Go M.D. on 01/04/2021 at 7:35
[2021-01-04] MEDS: DEXTROSE 5%-0.45% NS 1,000 ML 100 ML IV ×2 (09:50→19:21)
[2021-01-04] MEDS: ENOXAPARIN 40 MG/0.4 ML SYRINGE SUBCUT (10:05)
--- NOTE | 2021-01-04 10:40 | PC.NURSE ---
Addendum entered by Tatiana Torres R.N. 01/04/21 14:30: RT attempted to do breathing trial again, patient more alert and follows commands but patient is unable to stay awake. RT stopped breathing trial and we will reassess in 2 hours to see if patient becomes more awake. Original Note: Day shift note - At start of shift patient sedated on propofol at 5mcg/min and fentanyl 0.3mcg/min. Respiratory up at bedside and plan is to do breathing trial when patient able to follow commands, all sedation turned off at 0745. Restraints in place at this time, no signs of injury. Head CT ordered and okay to try and extubate patient and get CT after patient is extubated per MD. At 0945 patient is able to squeeze hands but unable to keep eyes open for extended periods of time, respiratory at bedside attempted to trial patient.
--- NOTE | 2021-01-04 11:10 | P.PN_ITS ---
Subjective Subjective Date Patient Seen: 01/04/21 Interval history: Patient is a 75-year-old male who was admitted to the hospital following a suicide attempt. This was an intentional overdose of benzodiazepines. Patient then was locked in his car with the car running in the garage. The patient's carbon monoxide level was elevated at 10%. He was then treated with 100% FiO2 on the ventilator as patient was unresponsive upon arrival. He apparently was more awake alert in agitated last evening. His fentanyl Ativan and propofol had been off since 745 this morning. The patient is minimally arousable will withdraw to pain but is fairly lethargic. He completed a weaning trial earlier this morning. Exam Vital Signs (past 8 hours): - 01/04/21 04:00 01/04/21 05:00 01/04/21 06:00 Temperature 98.6 F 98.2 F 98.2 F Pulse Rate 54 L 52 L 52 L Respiratory Rate 16 16 16 Blood Pressure 120/62 127/66 128/64 Pulse Oximetry 100 99 100 01/04/21 07:00 01/04/21 08:00 01/04/21 09:00 Temperature 98.8 F 98.8 F 99.1 F Pulse Rate 52 L 51 L 57 L Respiratory Rate 17 16 16 Blood Pressure 130/65 153/74 H 176/92 H Pulse Oximetry 100 100 100 01/04/21 10:00 Temperature 99.0 F Pulse Rate Respiratory Rate 12 Blood Pressure 180/88 H Pulse Oximetry 100 Fraction of Inspired Oxygen 100 Oxygen Delivery Method Mechanical Ventilation Oxygen Flow Rate 21 Narrative Exam Narrative: Elderly gentleman lying in bed lethargic but arousable to stimuli Patient is intubated ET tube is in place Lungs: Clear to auscultation Cardiac exam: Regular rate and rhythm normal S1-S2 Abdomen: Soft and not Extremities: No edema Objective Labs Result Diagrams: 01/04/21 04:35 01/04/21 04:35 Labs: Laboratory Results - last 24 hr 01/03/21 01/03/21 01/03/21 12:30 13:17 13:17 WBC 10.0 RBC 3.68 L Hgb 12.1 L Hct 36.0 L MCV 97.9 MCH 32.9 MCHC 33.6 RDW 12.6 Plt Count 156 Neut % (Auto) 87.9 H Lymph % (Auto) 5.0 L [place] % (Auto) 6.5 Eos % (Auto) 0.1 L Baso % (Auto) 0.5 Neut # (Auto) 8800 H Lymph # (Auto) 500 L [place] # (Auto) 600 Eos # (Auto) 0 Baso # (Auto) 0 ABG pH ABG pCO2 ABG pO2 ABG HCO3 ABG Total CO2 ABG O2 Saturation ABG Base Excess FiO2 Sodium 138 Potassium 4.5 Chloride 108 H Carbon Dioxide 26 BUN 19 Creatinine 0.86 Estimated GFR > 60.0 BUN/Creatinine Ratio 22.1 H Glucose 113 H Calcium 8.7 Total Bilirubin 0.6 AST 24 ALT 13 Alkaline Phosphatase 60 NT-Pro-B Natriuret Pep Total Protein 6.2 L Albumin 3.5 Globulin 2.7 Albumin/Globulin Ratio 1.3 Nasal Screen MRSA (PCR) Negative for mrsa 01/03/21 01/03/21 01/04/21 13:17 13:56 04:35 WBC 8.8 RBC 3.52 L Hgb 11.6 L Hct 34.2 L MCV 97.3 MCH 33.1 MCHC 34.0 RDW 12.6 Plt Count 133 L Neut % (Auto) 73.8 Lymph % (Auto) 11.6 L [place] % (Auto) 13.6 Eos % (Auto) 0.6 L Baso % (Auto) 0.4 Neut # (Auto) 6500 Lymph # (Auto) 1000 L [place] # (Auto) 1200 H Eos # (Auto) 100 Baso # (Auto) 0 ABG pH 7.44 ABG pCO2 41.7 ABG pO2 611 H* ABG HCO3 28 H ABG Total CO2 29 ABG O2 Saturation 100 ABG Base Excess 4.0 H FiO2 100 Sodium Potassium Chloride Carbon Dioxide BUN Creatinine Estimated GFR BUN/Creatinine Ratio Glucose Calcium Total Bilirubin AST ALT Alkaline Phosphatase NT-Pro-B Natriuret Pep 46 Total Protein Albumin Globulin Albumin/Globulin Ratio Nasal Screen MRSA (PCR) 01/04/21 04:35 WBC RBC Hgb Hct MCV MCH MCHC RDW Plt Count Neut % (Auto) Lymph % (Auto) [place] % (Auto) Eos % (Auto) Baso % (Auto) Neut # (Auto) Lymph # (Auto) [place] # (Auto) Eos # (Auto) Baso # (Auto) ABG pH ABG pCO2 ABG pO2 ABG HCO3 ABG Total CO2 ABG O2 Saturation ABG Base Excess FiO2 Sodium 136 L Potassium 3.7 Chloride 107 Carbon Dioxide 25 BUN 13 Creatinine 0.76 Estimated GFR > 60.0 BUN/Creatinine Ratio 17.1 Glucose 123 H Calcium 8.5 Total Bilirubin 0.9 AST 21 ALT 13 Alkaline Phosphatase 47 NT-Pro-B Natriuret Pep Total Protein 5.4 L Albumin 3.0 L Globulin 2.4 Albumin/Globulin Ratio 1.3 Nasal Screen MRSA (PCR) [facility] Medical History (Updated 01/03/21 @ 18:37 by Nany Ventura MD) Hypertension Family History (Updated 01/03/21 @ 18:38 by Nany Ventura MD) Other Patient unable to provide medical history Social History household members: spouse Smoking Status: Unknown if ever smoked Assessment & Plan Assessment & Plan narrative: 75-year-old male admitted to the hospital following and benzodiazepine intentional overdose -patient was found unresponsive, intubated on the scene -patient was found to have carbon monoxide level of 10% -patient with acute hypoxic respiratory failure on the scene -he has been tapered from FiO2 of 100% down to room air -anticipate extubation today -patient appears to be fairly lethargic but is arousable Probable depression, with suicidal ideation and intentional overdose -psychiatric consultation after extubation Hypertension -will start antihypertensive after extubation Will continue DVT prophylaxis Quality VTE Deep Vein Thrombosis/Pulmonary Embolism Present on Admission: No
--- NOTE | 2021-01-04 11:59 | CM.DANOTE ---
Patient is a 75 year old male who was admitted on 01/03/21 for intentional suicide attempt. Pt has MCR for insurance and his PCP is not listed. EMR was reviewed. Per MD, pt has no medical hx for hospital admissions or ER visits and no hx of MH/Psych needs. Pt's spouse confirms that she has recent suicide attempt a couple weeks ago and was planning for suicide attempt yesterday and spouse did not want to be left alone or live without his and therefore planned suicide attempt by both taking Xanax and turning on the car for carbon monoxide poisoning. Spouse woke up and could not arouse pt and called EMS and pt was unresponsive and intubated in the field and remains intubated in ICU for ongoing medical care. Per RN, pt needed additional sedation last night as he woke and attempted to pull on his lines and was agitated. Pt now on sedation vacation to determine if he is yet appropriate for attempt at extubation. Dtr Opal was bedside briefly for medical update from RN as she has been bedside with pt's spouse in the ED awaiting voluntary MH Inpt tx placement and keeping pt's spouse updated on his medical status. Pt currently not appropriate or able to participate in MH assessment at this time to determine d/c planning needs. Spouse was recently established with Dr. Carballo Psychiatrist at [facility]. Dtr Opal lives locally in [place], son Juan has been bedside with spouse and lives in [place], and third son Robert is flying up from [place] and plans to stay with pt and spouse for a while after d/c for additional support pending pt's d/c plan and needs. Plan: SW to follow closely to see if pt can successfully be extubated today towards need for mental health assessment and medical needs to help make safe plan when stable enough for discharge. MATEO Lee Discharge Planning/Care Management CM Discharge Assessment Start: 01/04/21 11:54 Freq: Status: Active Protocol: Document 01/04/21 11:54 BF (Rec: 01/04/21 11:59 BF [id number]) Discharge Planning Assessment Assigned Cover Seamer MATEO Velarde Advance Directives? No: Daughter reports full code but no paperwork History Provided By Family Member,Medical Record Has Patient been admitted in last 30 No days? Prior Living Arrangements House Household Members spouse Type of transporation used prior to Drives own vehicle admit Independent with ADL's Yes Is patient alert and oriented? Yes Caregiver for Another No: but with significant MH challenges Comment Pending pt getting extubated and likely need for Mental Health services Barriers to Discharge Yes Discharge Plan Psychiatric Facility [facility] Social Work Transportation Arrangement Unclear at this time, adult children available for transport if safe for home Referrals Initiated Other Additional Comment Waiting to complete MH assessment to determine referral needs Review Status In Process Please Provide Date Initial DC 01/04/21 Assessment Was Performed Next Review Type Continued Stay Review
--- NOTE | 2021-01-04 15:31 | DIET.PN ---
Dietary Progress Note Assessment: 75y M admitted for suicide attempt c CO exposure and ingestion of benzodiazapam intubated by EMS referred to nutrition for NPO on vent status currently in ICU. Pt has been intubated x24h and is trialing sedation vacation, however pt still frequently stops breathing requiring assist of ventilator. HT: 177.8cm WT: 68.1kg (7% below IBW) BMI: 21.5 Nutrition Diagnosis: inadequate oral intake r/t inability to consume POs aeb pt NPO on vent status x24h. Interventions: 1. Recc initiation of tube feeding diet as follows: Enteral Feeding: Continuous OG feeding c Glucerna 1.5 starting at 15mL/h and titrating up by 10mL q6h until reaching goal of 45mL/h. Free Water Flush: 250mL q4h providing 1500mL in 24h Goal feed provides 1620 kcal (24kcal/kg), 89g PRO (1.3g/kg), and 820 feed water. Feed and flushes provide 2320mL free water (34mL/kg) 2. Recc soft diet once extubated for ease of PO consumption. Diet Order: NPO EER: 1620kcal (24kcal/kg), 80g PRO (1.1g/kg) Monitoring/Evaluations: following daily
[2021-01-04] MEDS: LABETALOL 20 MG/4 ML SYRINGE 10 MG IV (16:07)
--- NOTE | 2021-01-04 18:58 | PC.NURSE ---
Addendum entered by Jovanna Anders R.N. 01/04/21 22:53: 2041 RT at bedside, stimulated pt with sternal rub and loud speech, eyes opened, able to track and respond with head nod and squeezing of hand. At this time a breathing trial was attempted, pt able to breathe without assistance for 25 minutes. During trial cues were used to keep pt awake to keep breathing. At the end of the 25 minutes pt had become apneic several times, it was determined by RT that pt was not ready to be extubated. Will attempt breathing trial again in 2-4 hours. Pt repositioned in position of comfort (left side lying), will continue to monitor. Addendum entered by Jovanna Anders R.N. 01/04/21 19:03: 1815 Pt woke up, moving arms and legs, opening eyes, squeezing hands and nodding head to questions. Informed RT that we were ready to attempt a breathing trial. RT arrived at bedside, at 1827 we attempted a breathing trial for 10 minutes, at the end of 10 minutes pt needed to be roused and reminded to breathe. Mechanical ventilation restarted, new settings FiO2 21% PEEP 5 RR 8 TV 420. Will attempt another breathing trial in 2 hours with RT at bedside. Original Note: Evening shift note: assumed care of pt at 1530, sedation vacation started today at 0745, pt remains off all sedation at this time. Rouses to voice and sternal rub, but quickly falls back to sleep. Vent setting are FiO2 21% PEEP 5 RR 12 TV 420, SpO2 98%, core temp. 100.6, SR 68, BP 161/75. Soft wrist restraints in place to keep pt from pulling at the lines/tubes, no signs of distress/injury. Will continue to monitor.
[2021-01-05] VITALS (54 sets, daily range): BP systolic 126–186; BP diastolic 58–88; PULSE 56–97; RESP 0–41; TEMP 37.4–38.3; O2SAT 91–100
[2021-01-05] MEDS: FAMOTIDINE 20 MG/50 ML PIGGYBACK 200 MG IV ×2 (00:35→12:42)
[2021-01-05 04:32] LABS: Add Manual Diff / Slide Review NO; Basophils Absolute Auto 100 /uL (0-100); Basophils Percent Auto 0.8 % (0-2); Eosinophils Absolute Auto 0 /uL (0-450); Eosinophils Percent Auto 0.3 % (2-4); Hematocrit 36.4 % (41-53); Hemoglobin 12.3 g/dL (13.5-17.5); Lymphocytes Absolute Auto 900 /uL (1100-4500); Lymphocytes Percent Auto 9.1 % (25-40); Mean Corpuscular HGB Conc 33.7 % (30-36); Mean Corpuscular Hemoglobin 32.9 PG (26-34); Mean Corpuscular Volume 97.6 fL (80-100); Monocytes Absolute Auto 1100 /uL (0-900); Monocytes Percent Auto 11.3 % (3-14); Neutrophils Absolute Auto 7400 /uL (1500-7000); Neutrophils Percent Auto 78.5 % (50-75); Platelet Count 141 X10^3/uL (150-400); Red Blood Cell Count 3.73 X10^6/uL (4.5-5.9); Red Cell Distribution Width 12.4 % (11.6-14.8); White Blood Cell Count 9.4 X10^3/uL (4.5-11.0)
[2021-01-05 04:39] LABS: Blood Urea Nitrogen 9 mg/dL (9-20); Calcium 8.5 mg/dL (8.4-10.2); Carbon Dioxide 26 mmol/L (22-32); Chloride 106 mmol/L (98-107); Estimated Glomerular Filt Rate > 60.0 mL/min (>60); Glucose 126 mg/dL (80-110); HEMOLYSIS 21 (0-50); Potassium 3.7 mmol/L (3.4-5.1); Sodium 135 mmol/L (137-145)
[2021-01-05] MEDS: DEXTROSE 5%-0.45% NS 1,000 ML 100 ML IV (05:47)
--- NOTE | 2021-01-05 06:35 | PC.NURSE ---
Physicist [place] Note-Patient remained on ventilator, SIMV FIO2 .21, PEEP 5, TV 420, RR 8, SpO2 >94%, LS clear/dim, intermittent cough with thick white sputum sx from ETT. Patient failed C-pap trail from [id number], still becomes apneic. Patient would make brief eye contact, nod or shake head to simple questions. SR, BP stable, RR mostly 13-16 with vent. OGT patent, drained 200ml brownish/green fluid. 800ml UOP in Kellogg. Soft wrist restraints in place to keep him from pulling at lines and tubes, intermittent restlessness and agitation with periods of lethargy.
[2021-01-05] MEDS: ENOXAPARIN 40 MG/0.4 ML SYRINGE SUBCUT (09:52)
--- NOTE | 2021-01-05 10:40 | PC.NURSE ---
Dayshift Note: Pt remains intubated. Sedation has been off since dayshift yesterday. Pt is intermittently awake and following commands, calm when awake. Pt shakes head no to pain. Attempting breathing trials, but pt has prolonged periods of apnea and needs verbal stimulation to continue with adequate respirations. Pt remains ventilated at this time. We have attemtped breathing trials twice this morning but pt is still having prolonged periods of apnea. Pt remains with minimal ventilator support. FiO2 21%, PEEP 5, SIMV rate of 8, RR 8. TV 420. Pt is in SR-SB, HR 59-60s. BP 140s-160s/70s-80s. Pt with low grade core temp 99.7. OG placement checked by auscultation. Small amount of bilious green output from NG tube. Abdomen is soft and non-tender. Kellogg in place, draining clear yellow urine, adequate volume.Skin intact, pt is very mobile and follows commands. Repositioned as needed. Pt tends to slump down in the bed and turn to his side for comfort. YEHUDA nunes. Pt's daughter to bedside, updated with pt's condition. Call light in reach. Pt with restraints in place, monitored for safety frequently. Bed alarm on and functioning. Will continue to monitor, notify MD with changes.
--- NOTE | 2021-01-05 12:36 | PM.CHAP ---
Staff referral. Introduction to daughter who is primary support person. Daughter shared that out of town family members will arrive today. Jeff Hutchinson, [facility] [phone]
--- NOTE | 2021-01-05 13:00 | DI.RAD.S_ITS ---
PROCEDURE: XR CHEST 1V INDICATIONS: intubated TECHNIQUE: One view of the chest was acquired. COMPARISON: [facility], CR, XR CHEST 1V, 01/04/2021, 6:15. [facility], CR, XR CHEST 1V, 01/03/2021, 9:25. FINDINGS: Surgical changes and devices: Endotracheal and esophagogastric tubes in normal position. Lungs and pleura: Lungs are mildly abnormal with a mild interstitial prominence. Possible mild or early pneumonia retrocardiac left lung base.. No pleural effusions or pneumothorax. Mediastinum: Mediastinal contours appear normal. Heart size is normal. Bones and chest wall: No suspicious bony lesions. Overlying soft tissues appear unremarkable. IMPRESSION: Tubes in normal position. A central line is not seen. Mild interstitial prominence, reduced inspiration, possible mild or early pneumonia left lung base behind the heart. Dictated by: Vish Peterson M.D. on 01/05/2021 at 8:13 Approved by: Vish Peterson M.D. on 01/05/2021 at 8:15
[2021-01-05 13:32] LABS: PCO2 ABG 36.7 mmHg (35-45); pH ABG 7.46 (7.35-7.45)
[2021-01-05 13:33] LABS: Fractionated Inspired Oxygen 21; HCO3 ABG 26 mmol/L (22-26); Oxygen Saturation ABG 96 % (95-100); PO2 ABG 80 mmHg (80-100); TCO2 ABG 27 mmol/L (21-31)
[2021-01-05] MEDS: PIPERACILLIN-TAZO 3.375 GM/50 ML FROZ.PIGGY IV ×2 (14:35→21:27)
[2021-01-05] MEDS: SODIUM CHLORIDE 0.9% 1,000 ML 50 ML IV (16:53)
--- NOTE | 2021-01-05 18:34 | P.PN_ITS ---
Subjective Subjective Date Patient Seen: 01/05/21 Time Patient Seen: 08:45 Interval history: Patient is a 75-year-old male who was admitted to the hospital following a suicide attempt. This was an intentional overdose of benzodiazepines. Patient then was locked in his car with the car running in the garage. Reportedly elevated carboxyhemoglobin however this lab is currently pending. He was febrile yesterday and has developed increasing secretions. Chest x-ray shows a possible left retrocardiac infiltrate. He has failed many spontaneous breathing trials today with continued apnea. ABG was performed which revealed a PO2 of 80 on room air or PF ratio of 380. He was started on Zosyn for possible aspiration pneumonia as it appears to be too soon for marquise tilator associated pneumonia. Exam Vital Signs (past 8 hours): - 01/05/21 11:00 01/05/21 12:00 01/05/21 12:06 Temperature 99.7 F H 99.9 F H Pulse Rate 58 L 72 Respiratory Rate 10 L 18 Blood Pressure 164/77 H 155/74 H Pulse Oximetry 99 100 99 01/05/21 12:45 01/05/21 13:00 01/05/21 14:00 Temperature 99.9 F H 99.9 F H 99.9 F H Pulse Rate 63 65 97 H Respiratory Rate 12 14 15 Blood Pressure 170/80 H 169/81 H Pulse Oximetry 99 98 99 01/05/21 14:35 01/05/21 15:00 01/05/21 15:30 Temperature 100.0 F H 99.7 F H 99.9 F H Pulse Rate 59 L 67 65 Respiratory Rate 13 8 L 10 L Blood Pressure 170/81 H Pulse Oximetry 99 100 99 01/05/21 16:00 01/05/21 16:02 01/05/21 16:30 Temperature 99.5 F 99.7 F H 99.5 F Pulse Rate 70 67 74 Respiratory Rate 15 14 40 H Blood Pressure 182/87 H 167/88 H Pulse Oximetry 100 100 100 01/05/21 17:00 01/05/21 17:02 01/05/21 17:03 Temperature 99.9 F H 99.9 F H 99.9 F H Pulse Rate 65 65 64 Respiratory Rate 10 L 19 11 L Blood Pressure 182/88 H 180/86 H 148/65 H Pulse Oximetry 100 100 100 01/05/21 17:30 Temperature 99.9 F H Pulse Rate 82 Respiratory Rate 41 H Blood Pressure Pulse Oximetry 91 Fraction of Inspired Oxygen 100 Oxygen Delivery Method Mechanical Ventilation Oxygen Flow Rate 21 Narrative Exam Narrative: GENERAL APPEARANCE: Elderly gentleman lying in bed, lethargic, intubated, no longer on sedation. SKIN: Inspection of the skin reveals no rashes, ulcerations or petechiae. HEENT: Normocephalic atraumatic, extraocular muscles are intact, oropharynx is clear and mucous membranes are moist, neck is supple without adenopathy. ET tube in place NECK: Supple and symmetric. There was no thyroid enlargement, and no tenderness, or masses were felt. CHEST: Normal AP diameter and normal contour without any kyphoscoliosis. LUNGS: Auscultation of the lungs revealed no wheezes, rhonchi, or rales. CARDIOVASCULAR: There was a regular rate and rhythm without any murmurs, gallops, rubs. Peripheral pulses were 2+ and symmetric. ABDOMEN: Soft and nontender without distention. No ascites was noted. MUSCULOSKELETAL: There was no tenderness or effusions noted. Muscle strength and tone were normal. EXTREMITIES: No cyanosis, clubbing or edema. NEUROLOGIC: Alert, opens eyes, follows commands, moves all extremities equally. He was able to communicate today via written word. Objective Labs Result Diagrams: 01/05/21 04:15 01/05/21 04:15 Labs: Laboratory Results - last 24 hr 01/05/21 01/05/21 01/05/21 04:15 04:15 13:23 WBC 9.4 RBC 3.73 L Hgb 12.3 L Hct 36.4 L MCV 97.6 MCH 32.9 MCHC 33.7 RDW 12.4 Plt Count 141 L Neut % (Auto) 78.5 H Lymph % (Auto) 9.1 L [place] % (Auto) 11.3 Eos % (Auto) 0.3 L Baso % (Auto) 0.8 Neut # (Auto) 7400 H Lymph # (Auto) 900 L [place] # (Auto) 1100 H Eos # (Auto) 0 Baso # (Auto) 100 ABG pH 7.46 H ABG pCO2 36.7 ABG pO2 80 ABG HCO3 26 ABG Total CO2 27 ABG O2 Saturation 96 ABG Base Excess 2.0 FiO2 21 Sodium 135 L Potassium 3.7 Chloride 106 Carbon Dioxide 26 BUN 9 Creatinine 0.69 Estimated GFR > 60.0 BUN/Creatinine Ratio 13.0 Glucose 126 H Calcium 8.5 PFSH Medical History Hypertension Family History Other Patient unable to provide medical history Social History household members: spouse Smoking Status: Unknown if ever smoked Assessment & Plan Assessment & Plan narrative: This is a 75-year-old male admitted to the hospital following a suicide attempt with benzodiazepines. He has failed multiple weaning trials, and remains intubated. 1. Acute hypoxic respiratory failure, resolved, present on admission -patient was found unresponsive and intubated on the scene, also with reported elevation and carbon monoxide level of 10%, although currently this lab appears to be pending at this time. -patient was reportedly in acute hypoxic respiratory failure with EMS. He was initially treated with 100% FiO2 for possible carbon monoxide poisoning. He also was possibly hypoxic secondary to benzodiazepine overdose. -repeat blood gas today with a PO2 of 80, on room air. This equates to a PF ratio of 380 indicating his respiratory failure has resolved. However, he has continued increasing secretions and a notable left lower lobe opacity which may be secondary to aspiration. He was started on Zosyn today. This is too soon for ventilator associated pneumonia. -will continue spontaneous breathing trials, limit sedation as much as possible, anticipate extubation possibly as soon as tomorrow. 2. Probable depression, with suicidal ideation and intentional overdose -patient intentionally took benzodiazepines and attempt to end his life. Unable to further confirm his intentions at this time given that he remains intubated. Will further assess once he is extubated. Will need social work consultation and possible psychiatric evaluation as well. 3. Hypertension -patient is not on any current medical therapy at home, however he has been quite hypertensive here. Will start some antihypertensive therapy starting in the morning. 4. Probable aspiration - as noted above, have started zosyn. Will continue. I spent 30 minutes providing critical care management this patient. This excludes time spent in performing separately billed procedures. DVT: Lovenox daily Dispo: Admitted to the ICU, will need further psychiatric and social work evaluation after extubation. Code: Full Quality VTE Deep Vein Thrombosis/Pulmonary Embolism Present on Admission: No
--- NOTE | 2021-01-05 21:08 | RT ---
Extubated pt @ 5. Pt attempted to pull ET tube out again. Pt awake and able to follow commands. Extubated to cool aerosol 28%/7L. Sp02 100% No distress noted.
--- NOTE | 2021-01-05 22:18 | PC.NURSE ---
Stevie attempted to self extubate at approx 2030, upon assessment with Orienting Rn, cook camp, RT and provider it was decided to extubate. Stevie was sucessfully and uneventfully extubated at approx. 2100 and placed on 28% humidified O2 via mask at 7lpm. Stevie tolerated extubation well with only complaint of sore throat that is tolerable per pt. Provider remains present post-extubation and initiates conversation with Stevie regarding future intubation if needed. Stevie states he does not ever want to be intubated again. Risks and possible outcomes discussed with pt and he states he understands, and states again that he does not want to be intubated. Stevie states he does want defibrillation, cpr and meds if his heart stops, but no intubation. Daughter Opal was phoned and updated, she arrived to visit at approx 5 and was informed of change in pt code status.
[2021-01-05 22:35] LABS: Appearance Urine UA CLEAR; Bilirubin Urine UA NEGATIVE (NEGATIVE); Color Urine UA RED; Glucose Urine UA NEGATIVE (Negative); Ketones Urine UA NEGATIVE (NEGATIVE); Leukocyte Esterase Urine UA TRACE (NEGATIVE); Nitrite Urine UA NEGATIVE (Negative); Occult Blood Urine UA 3+ (Negative); Protein Urine UA 2+ (Negative); Specific Gravity Urine UA 1.015 (1.000-1.035); Urobilinogen Urine UA 0.2 E.U./dL (0.2)
[2021-01-05 22:43] LABS: RBC Urine >100/HPF (0-5/HPF); WBC Urine 1-5/HPF (0-5/HPF)
[2021-01-05 22:44] LABS: Bacteria Urine Occasional (0-1); Culture Indicated Urine Specimen Cultured
[2021-01-06] VITALS (24 sets, daily range): BP systolic 121–168; BP diastolic 60–84; PULSE 55–79; RESP 11–28; TEMP 36.9–37.7; O2SAT 16–100; BMI 21.0
--- NOTE | 2021-01-06 00:03 | PC.NURSE ---
Patient is resting, with normal respirations at 16 per minute, although I was not able to edit the 1159 vitals to reflect that. Will contine3 15 minute checsk and one on one supervision.
[2021-01-06] MEDS: FAMOTIDINE 20 MG/50 ML PIGGYBACK 200 MG IV (00:57)
--- NOTE | 2021-01-06 02:02 | PC.NURSE ---
Respirations are at 16 per minute at 0200, unable to change the vitals in [employer] to reflect that.
--- NOTE | 2021-01-06 02:03 | PC.NURSE ---
Respirations at 0200 are 16 per minute, unable to change vital signs in [employer] to reflect.
[2021-01-06] MEDS: PIPERACILLIN-TAZO 3.375 GM/50 ML FROZ.PIGGY IV ×2 (02:50→08:08)
[2021-01-06 05:07] LABS: Add Manual Diff / Slide Review NO; Basophils Absolute Auto 0 /uL (0-100); Basophils Percent Auto 0.5 % (0-2); Eosinophils Absolute Auto 300 /uL (0-450); Eosinophils Percent Auto 3.1 % (2-4); Hematocrit 33.2 % (41-53); Hemoglobin 11.4 g/dL (13.5-17.5); Lymphocytes Absolute Auto 900 /uL (1100-4500); Lymphocytes Percent Auto 10.7 % (25-40); Mean Corpuscular HGB Conc 34.3 % (30-36); Mean Corpuscular Hemoglobin 32.9 PG (26-34); Monocytes Absolute Auto 900 /uL (0-900); Monocytes Percent Auto 10.6 % (3-14); Neutrophils Absolute Auto 6500 /uL (1500-7000); Neutrophils Percent Auto 75.1 % (50-75); Platelet Count 148 X10^3/uL (150-400); Red Blood Cell Count 3.46 X10^6/uL (4.5-5.9); Red Cell Distribution Width 12.1 % (11.6-14.8); White Blood Cell Count 8.7 X10^3/uL (4.5-11.0)
[2021-01-06 05:20] LABS: Alanine Aminotransferase 13 IU/L (<50); Albumin 2.9 g/dL (3.5-5.0); Albumin Globulin Ratio 1.1 (1.0-2.8); Alkaline Phosphatase 42 U/L (38-126); Aspartate Aminotransferase 46 IU/L (17-59); BUN Creatinine Ratio 13.3 (6-22); Blood Urea Nitrogen 10 mg/dL (9-20); Calcium 8.5 mg/dL (8.4-10.2); Carbon Dioxide 28 mmol/L (22-32); Chloride 106 mmol/L (98-107); Estimated Glomerular Filt Rate > 60.0 mL/min (>60); Globulin 2.6 g/dL (1.7-4.1); Glucose 104 mg/dL (80-110); HEMOLYSIS < 15 (0-50); Potassium 3.6 mmol/L (3.4-5.1); Sodium 137 mmol/L (137-145); Total Protein 5.5 g/dL (6.3-8.2)
--- NOTE | 2021-01-06 07:08 | PC.NURSE ---
retail shift manager - Care was taken over for patient at 2300, patient was a little confused at about 2330 and tried to get out of bed but was easily reoriented. Patient satting upper 90s on room air, no complaints of pain or shortness of breath. VSS. Patient has escudero in place draining pink urine. IV fluids running. No bowel movement overnight. Patient slept well overnight and in the morning he was able to answer orientation questions. Patients IV came out overnight and new IV was placed.
--- NOTE | 2021-01-06 08:51 | CM.DPNOTE ---
Addendum entered by MATEO Soriano 01/06/21 10:52: 1053: According to RN, patient has made a dramatic turn around from yesterday; has been extubated, medically cleared, po abx, A+O, doing very well. Addendum entered by MATEO Soriano 01/06/21 09:05: Correction: According to ED note They both split a bottle of Xanax 0.5 mg he took his 15-16 tablets at around midnight and then went into the garage and turned on his car. Original Note: DCP Cont Introduced self and role to dtr Opal Wahl yesterday P# [phone]. Opal lives a few blocks away from , her brother Robert is flying in from [place]. Son Juan, who lives in [place], is here. Opal explains all adult children are very close and supportive of each other and their parents. Opal admits feeling in shock still and quite overwhelmed, she states patient's spouse Cata is doing well at [facility] psychiatric unit in [place]. Opal reviews her parent's suicide attempt, spouse Cata intentionally overdosed on prescription medication and both patient and spouse sat in their car, running, with garage door closed. Cata awoke, drowsy, attempted to wake patient (would not respond to external stimuli) so Cata able to stumble to inside phone to call 911 Opal aware that in order for this [facility] and/or psychiatrist to complete a MH eval/safety assessment, patient will need to improve medically and be able to engage in assessment. D/t significance of attempt, this GRILL ATTENDANT hopeful patient will have psychiatric facility secured upon medical clearance however, medical state remains tenuous. Following very closely. MATEO Soriano
[2021-01-06] MEDS: BISACODYL 5 MG TABLET 10 MG PO (09:25)
[2021-01-06] MEDS: AMOXICILLIN/CLAV 875/125 MG 1 TAB PO ×2 (09:26→20:01)
[2021-01-06] MEDS: ENOXAPARIN 40 MG/0.4 ML SYRINGE SUBCUT (09:26)
--- NOTE | 2021-01-06 11:35 | PT.IIE ---
Current Diagnoses Hematuria, unspecified (01/03/21) Poisoning by benzodiazepines, intentional self-harm, initial encounter (01/03/21) Toxic effect of carbon monoxide from unspecified source, intentional self-harm, initial encounter (01/03/21) Medical History (Last Reviewed 01/05/21 @ 18:44 by Wellington Holman DO) Hypertension Physical Therapy Inpatient Evaluation/Re-Eval M1 PT/OT-IP Prior Functional Status Start: 01/06/21 13:13 Freq: NEEDED Status: Active Protocol: Document 01/06/21 11:35 AB (Rec: 01/06/21 13:24 AB [id number]) Medical Review Prior Functional Status Medical History Reviewed Yes Communication able to make needs known Mobility and Gait pt stated that he is independent with all mobilities and ambulation without AD Social History Household Members spouse Living Arrangements House Number of Floors (Floors) One Floor Number of Stairs To Enter/Railing? 1 step to enter Home Environment Standard Height Toilet,Tub/ Shower Home Equipment Shower Seat with Backrest Additional Social History Comment has walking sticks and uses when he goes for a walk M2 PT-IP Current Condition Start: 01/06/21 13:13 Freq: NEEDED Status: Active Protocol: Document 01/06/21 11:35 AB (Rec: 01/06/21 13:24 AB [email or web address]) Physical Therapy Current Condition Current Condition Evaluation Date 01/06/21 Treatment Diagnosis suicide attempt; difficulty in walking Onset Date 01/05/21 Precautions Other Precautions falls M3 PT-IP Subjective Start: 01/06/21 13:13 Freq: NEEDED Status: Active Protocol: Document 01/06/21 11:35 AB (Rec: 01/06/21 13:24 AB [email or web address]) Subjective Physical Therapy Visit Type Type Initial Evaluation Visit Start Time 11:35 Visit Stop Time 12:01 Total Visit Minutes 26 Number of REVENUE FIELD AUDITOR Visits 0 Physical Therapy Visit Comments Patient Comments pt is agreeable to do PT Therapy Pain Assessment Pain Present Pain Present Denied Pain M4 PT-IP Mobility and Gait Start: 01/06/21 13:13 Freq: NEEDED Status: Active Protocol: Document 01/06/21 11:35 AB (Rec: 01/06/21 13:24 AB [email or web address]) PT-Bed Mobility Assessment Supine to Sit Supine to Sit Standby Assistance PT-Transfer Assessment Sit to and From Stand Sit to and from Stand Contact Guard Assistance,1 Person Assistance,Use of Upper Extremities Equipment Transfer Assistive Device Gait Belt,Front Wheeled Walker Orthotic/Prosthetic Devices or Brace: No Transfers Transfer Destination Chair Transfer Technique ambulated using FWW Transfer Ability Level of Assist Minimal Assistance,1 Person Assistance,Use of Upper Extremities Comments Mobility Comments completed supine to sit SBA. pt was able to sit on EOB SBA. pt can be impulsive and has UE intentional tremors. completed sit to stand CGA and ambulated in room min A using FWW ~ 15 ft. pt tends to run into things and has very unsteady gait. agreed to walk again and completed 20 ft using FWW min A and cues. agreed to sit up on chair. positioned on chair. call light and table placed within reach. Gait Assessment Gait Gait Assistance Required: Minimum Assistance Distance (Feet) 20 Able to Maintain Weight Bearing Status Yes During Gait Assistive Devices Assistive Device Gait Belt,Front Wheeled Walker Orthotic/Prosthetic Devices or Brace: No Gait Deviations General Gait Pattern Ataxic,Decreased Stride Length ,Decreased Feet Clearance Factors Limiting Gait Function Factors Limiting Gait Function Decreased Activity Tolerance, Decreased Strength,Poor Balance,Poor Safety Awareness PT-Balance Assessment Sitting Balance and Reactions Static Sitting Balance Ability Good Dynamic Sitting Balance Ability Good Standing Balance and Reactions Static Standing Balance Ability Fair Dynamic Standing Balance Ability Fair Device Used FWW M5 PT-IP Objective Assessments Start: 01/06/21 13:13 Freq: NEEDED Status: Active Protocol: Document 01/06/21 11:35 AB (Rec: 01/06/21 13:24 AB [email or web address]) Orientation Orientation/Cognition Level of Alertness Alert Orientation Name,Place,Situation Safety Awareness Decreased Safety Awareness Gross Range of Motion Lower Extremity ROM Assessment Within Functional Limits Strength Lower Extremity Strength Assessment Within Functional Limits Muscle Tone Muscle Tone WNL Yes M6 PT-IP Treatment Start: 01/06/21 13:13 Freq: NEEDED Status: Active Protocol: Document 01/06/21 11:35 AB (Rec: 01/06/21 13:24 AB [email or web address]) Physical Therapy Treatment Education Education Provided Safety M7 PT-IP Assessment and Plan Start: 01/06/21 13:13 Freq: NEEDED Status: Active Protocol: Document 01/06/21 11:35 AB (Rec: 01/06/21 13:24 AB [email or web address]) PT Summary Assessment and Plan Potential Rehabilitation Potential Good Status of Condition at Evaluation Stable Summary Impairments Pain,ROM,Strength,Balance, Coordination,Cognition,Bed Mobility,Transfers,Gait, Activity Tolerance Assessment Summary pt requiring min A with ambulation using FWW. pt's spouse also in a hospital in [place]. pt may require SNF rehab at this time to improve strength and mobility inpendence. will continue to assess progress. Goals Bed Mobility Goal Independent Transfer Goal Independent,Front Wheeled Walker Gait Goal Independent,Front Wheel Walker Gait Distance 200 Other Goals improve transfers and ambulation without AD 200 ft SBA Days to Meet Goals 5 Frequency of Treatment Frequency Of Treatment Once a Day Treatment Plan Physical Therapy Treatment Plan Bed Mobility Training,Transfer Training,Gait Training, Therapeutic Exercise,Balance Retraining,Discharge Planning, Neuromuscular Re-ed, Coordination Retraining Precautions Other Precautions falls Recommendations To Nursing Amount of Assist Needed 1 Person Assist Discharge Recommendations PT Discharge Recommendations SNF Rehab Transportation Needs at Discharge Private Vehicle,Wheelchair/ Cabulance
--- NOTE | 2021-01-06 11:52 | CM.SWNOTE ---
COMMUNICATION EQUIPMENT REPAIRER Note Met w/patient and maxim Joseph at bedside , patient requests his dtr remain for the visit. Patient states he remembers meeting this COMMUNICATION EQUIPMENT REPAIRER after his 's prior suicide attempt and admission, during which psychiatric placement was attempted and patient was inevitably discharged home. Patient is A+O throughout our visit, affect is flat (appears to be baseline). Patient calm, thought process and speech WNL. Patient presents as having good insight and judgment. Reviewed events and details leading up to patient's suicide attempt. Patient explains that after his had been discharged from [facility], she followed up w/psychiatrist Dr Carballo, however, this had not been appropriate treatment for his ; she continued to complain of severe and debilitating panic/fear, obsessive thoughts and inability to eat and sleep well. Spouse often stated I'm out of my mind Patient describes his 's mental struggle as her living in hell, and both patient and he decided to plan their suicide because we had no alternative. This COMMUNICATION EQUIPMENT REPAIRER attempted multiple times to redirect patient to a conversation about his own mental health and motive for suicide attempt, with assist from maxim Joseph, learned the following; Patient states he and spouse have been 54 years. patient reads and practices eastern philosophy and feels taking ones own life is any human's right. Patient and spouse had felt the mental health system would not be reliable in treating spouse Cata and so patient decided to support his by planning and attempting suicide together so that spouse Cata would not be as scared. Patient also admits he did not want to live without his . Asked numerous clarifying questions and took assist from collateral contact Maxim Joseph to understand patient's somewhat unique perspective more thoroughly. Patient denies h/o depression, anxiety, denies h/o suicidal or homicidal ideation. Patient states he lives a wonderful, retired life, has a close knit family. Patient's greatest concern in life is how tortured his has been mentally...increasing over the last few months. Patient relieved that spouse Cata is getting acute psychiatric care at [facility] in [place] and agreeable to accepting help from his 3 adult children who are now all three staying locally to assist parents as needed. Patient denies the need for counseling at this time, denies need for any supportive services and is eager to return home w/his family. Patient admits he and his are private, do not socialize much with others except for their children. Patient does not verbalize any distress w/his life save for watching his struggle w/ mental illness. This COMMUNICATION EQUIPMENT REPAIRER suggested patient and family seek support through [facility] or other agency, either online or via support group, for loved ones of those suffering from mental illness. Patient agrees this might be helpful. Patient pleasant but questions this COMMUNICATION EQUIPMENT REPAIRER's intent or motivation for assessment. This COMMUNICATION EQUIPMENT REPAIRER reiterates multiple times that the assessment is a risk assessment and an opportunity to distinguish between what would be a healthy, competent adult ..free to make choices vs a mentally ill adult making decisions and choices based on severe and untreated mental illness. Patient stated understanding and confirmed he felt safe to return home w/family, denies current suicidal ideation or plan. COMMUNICATION EQUIPMENT REPAIRER Recommendation: Home with supportive family Will continue to follow closely. Might also remind patient and family that the ED should be accessed if Cata returns home from [facility] and her SI and panic/obsessions continue or escalate. Updated RN who agrees w/this COMMUNICATION EQUIPMENT REPAIRER's impression. Shirlene Lawrence MSW
--- NOTE | 2021-01-06 13:30 | PC.NURSE ---
Day shift note: Kellogg catheter removed at 1300, pt able to urinate within 15 minutes of removal, u/o 50cc, urine remains very red, hematuria, provider aware. Pt notes no pain or discomfort with urination. Pt resting in chair with feet up, no distress, able to make needs known, A/O x4, wants to go home tomorrow if possible. Will continue to monitor
--- NOTE | 2021-01-06 15:28 | PM.PN.1 ---
Subjective Subjective Date Patient Seen: 01/06/21 Time Patient Seen: 15:28 Interval history: Patient is a 75-year-old male who was admitted to the hospital following a suicide attempt. This was an intentional overdose of benzodiazepines. Patient then was locked in his car with the car running in the garage. Reportedly elevated carboxyhemoglobin however this lab is currently pending. He was febrile yesterday and has developed increasing secretions. Chest x-ray shows a possible left retrocardiac infiltrate. He was extubated overnight, and is on room air this morning. Doing well although he continues to have productive cough. Escudero catheter was removed, still with some gross hematuria, UA is pending with many RBC but only 1-5 WBC, culture pending. He is regretful about his decision to end his life, mainly about how it has affected his family including and daughters. Exam Vital Signs (past 8 hours): - 01/06/21 07:30 01/06/21 07:59 01/06/21 08:00 Temperature 99.1 F 99.1 F Pulse Rate 61 55 L Respiratory Rate 28 H 13 Blood Pressure 142/65 H Pulse Oximetry 99 97 01/06/21 15:16 Temperature 98.4 F Pulse Rate 72 Respiratory Rate 17 Blood Pressure 149/73 H Pulse Oximetry 100 Fraction of Inspired Oxygen 100 Oxygen Delivery Method Room Air Oxygen Flow Rate 21 Narrative Exam Narrative: GENERAL APPEARANCE: Elderly gentleman upright in hospital chair, no acute distress. SKIN: Inspection of the skin reveals no rashes, ulcerations or petechiae. HEENT: Normocephalic atraumatic, extraocular muscles are intact, oropharynx is clear and mucous membranes are moist, neck is supple without adenopathy. NECK: Supple and symmetric. There was no thyroid enlargement, and no tenderness, or masses were felt. CHEST: Normal AP diameter and normal contour without any kyphoscoliosis. LUNGS: Auscultation of the lungs revealed no wheezes, rhonchi, or rales. CARDIOVASCULAR: There was a regular rate and rhythm without any murmurs, gallops, rubs. Peripheral pulses were 2+ and symmetric. ABDOMEN: Soft and nontender without distention. MUSCULOSKELETAL: There was no tenderness or effusions noted. Muscle strength and tone were normal. EXTREMITIES: No cyanosis, clubbing or edema. NEUROLOGIC: alert, oriented. No focal deficits. Objective Labs Result Diagrams: 01/06/21 04:50 01/06/21 04:50 Labs: Laboratory Results - last 24 hr 01/05/21 01/06/21 01/06/21 22:14 04:50 04:50 WBC 8.7 RBC 3.46 L Hgb 11.4 L Hct 33.2 L MCV 96.0 MCH 32.9 MCHC 34.3 RDW 12.1 Plt Count 148 L Neut % (Auto) 75.1 H Lymph % (Auto) 10.7 L [place] % (Auto) 10.6 Eos % (Auto) 3.1 Baso % (Auto) 0.5 Neut # (Auto) 6500 Lymph # (Auto) 900 L [place] # (Auto) 900 Eos # (Auto) 300 Baso # (Auto) 0 Sodium 137 Potassium 3.6 Chloride 106 Carbon Dioxide 28 BUN 10 Creatinine 0.75 Estimated GFR > 60.0 BUN/Creatinine Ratio 13.3 Glucose 104 Calcium 8.5 Total Bilirubin 1.0 AST 46 ALT 13 Alkaline Phosphatase 42 Total Protein 5.5 L Albumin 2.9 L Globulin 2.6 Albumin/Globulin Ratio 1.1 Urine Color Red Urine Appearance Clear Urine pH 7.0 Ur Specific [place] 1.015 Urine Protein 2+ H Urine Glucose (UA) Negative Urine Ketones Negative Urine Occult Blood 3+ H Urine Nitrate Negative Urine Bilirubin Negative Urine Urobilinogen 0.2 Ur Leukocyte Esterase Trace H Urine RBC >100/hpf H Urine WBC 1-5/hpf Urine Bacteria Occasional (0-1) Ur Culture Indicated? Specimen cultured [facility] Medical History Hypertension Family History Other Patient unable to provide medical history Social History household members: spouse Smoking Status: Unknown if ever smoked Assessment & Plan Assessment & Plan narrative: This is a 75-year-old male admitted to the hospital following a suicide attempt with benzodiazepines. Extubated overnight and doing well today. 1. Acute hypoxic respiratory failure, resolved, present on admission -patient was found unresponsive and intubated on the scene, also with reported elevation and carbon monoxide level of 10%, although currently this lab appears to be pending at this time. -patient was reportedly in acute hypoxic respiratory failure with EMS. He was initially treated with 100% FiO2 for possible carbon monoxide poisoning. He also was possibly hypoxic secondary to benzodiazepine overdose. -repeat blood gas prior to extubation with a PaO2 of 80, on room air. This equates to a PF ratio of 380 indicating his respiratory failure has resolved. He develoepd increased secretions and a notable left lower lobe opacity which may be secondary to aspiration. He was started on Zosyn initially, narrowed to augmentin for presumed aspiration pneumonia. This is too soon for ventilator associated pneumonia. -will continue spontaneous breathing trials, limit sedation as much as possible, anticipate extubation possibly as soon as tomorrow. 2. Probable depression, with suicidal ideation and intentional overdose -patient intentionally took benzodiazepines and attempt to end his life. He states this was a co-decision with his whom is admitted in [place] to inpatient care. He denies SI at this time, and regrets this decision as he states he has seen the hurt it has caused his family. 3. Hypertension -patient is not on any current medical therapy at home, however he has been quite hypertensive here at times. Now improved after extubation, but will continue to monitor. 4. Probable aspiration - as noted above, have started zosyn. Will continue. 5. Hematuria, not present on admission' - suspect secondary to escudero catheter insertion, unclear if infected at this time as UA with >100 RBC and only 1-5 WBC. Culture is pending. However this will be adequately treated most likey with therapy from his aspiration. DVT: Lovenox daily Dispo: Stable for regular floor, probable discharge home tomorrow if he remains stable after extubation and continues to improve from aspiration/hematuria standpoint. Code: Full COVID-19 COVID-19 status: Negative Quality VTE Deep Vein Thrombosis/Pulmonary Embolism Present on Admission: No
[2021-01-06] MEDS: SODIUM CHLORIDE 0.9% FLUSH 10 ML IV (22:09)
[2021-01-07 06:37] VITALS: BP 148/71; PULSE 61; RESP 17; TEMP 37.1; O2SAT 96
[2021-01-07 07:57] VITALS: BP 137/70; PULSE 72; RESP 16; TEMP 36.8; O2SAT 98
[2021-01-07] MEDS: AMOXICILLIN/CLAV 875/125 MG 1 TAB PO (08:32)
[2021-01-07] MEDS: ENOXAPARIN 40 MG/0.4 ML SYRINGE SUBCUT (08:32)
--- NOTE | 2021-01-07 08:37 | P.DS_ITS ---
History of Present Illness History of Present Illness Date Patient Seen: 01/07/21 Time Patient Seen: 08:37 Chief complaint: Suicide attempt Narrative: Per Dr. Ventura, The patient is a 75-year-old male with no prior medical history who split a bottle of Xanax with his last evening went into his car and turned on the car in attempted suicide. Patient's woke up but the patient was unresponsive. 911 was called in the patient was intubated at the scene. He has remained unresponsive. The patient is unable to provide any history. His is not here either. Patient has no prior history of psychiatric illness, no prior history of medical conditions that were aware of. Patient was found to have a carbon monoxide level of 10%. After consultation with [facility] their recommendation was to ventilate him with 100% oxygen for 4 hours and then titrate oxygen down. The patient is admitted to the ICU intubated and unresponsive Discharge Providers Provider Date of admission: 01/03/21 10:33 Discharge Date: 01/07/21 Consults: 01/03/21 12:47 Consult to Dietitian, Adult Routine Comment: Reason For Exam: Patient on Ventilator and NPO 01/03/21 14:49 Consult to Pastoral Services Routine Comment: Suicide attemt both parents, daughter jacob 01/05/21 21:39 Consult to Physical Therapy Evaluate & Treat Comment: Post intubation Physician Instructions: Evaluate and Treat Discharge provider: Wellintgon Holman DO Summary Hospital Course Discharge Diagnosis: Please see hospital course by problem list noted below. Hospital Course: This is a 75-year-old male admitted to the hospital following a suicide attempt with benzodiazepines. 1. Acute hypoxic respiratory failure, resolved, present on admission -patient was found unresponsive and intubated on the scene, also with reported elevation and carbon monoxide level of 10%, although this lab appears to be cancelled in the EMR. -patient was reportedly in acute hypoxic respiratory failure with EMS. He was initially treated with 100% FiO2 for possible carbon monoxide poisoning per poison control. He also was possibly hypoxic secondary to benzodiazepine ov erdose. -repeat blood gas prior to extubation with a PaO2 of 80, on room air. This equated to a PF ratio of 380 indicating his respiratory failure has resolved. He developed increased secretions and a notable left lower lobe opacity which may be secondary to aspiration. He was started on Zosyn initially, narrowed to augmentin for presumed aspiration pneumonia. This is too soon for ventilator a ssociated pneumonia. -He had failed multiple spontaneous breathing trials but was ultimately extubat ed and quickly was breathing normally on room air. He had a mild cough after extubation due to pneumonia, but had no other side effects. 2. Probable depression, with suicidal ideation and intentional overdose -patient intentionally took benzodiazepines and attempt to end his life. He states this was a co-decision with his whom is admitted in [place] to inpatient care. He denies SI at this time, and regrets this decision as he states he has seen the hurt it has caused his family. He was seen an evaluated by social work and I, not felt to be detainable and patient did not believe that therapy was necessary for him. 3. Hypertension -patient is not on any current medical therapy at home, however was quite hypertensive here at times. Improved after extubation, recommend outpatient mo nitoring. 4. Probable aspiration - as noted above, started zosyn with continued improvement and augmentin prescribed on discharge. Suspect aspiration given intubation in the field and infiltrates as noted above. 5. Hematuria, not present on admission' - suspect secondary to escudero catheter insertion, unclear if infected at this time as UA with >100 RBC and only 1-5 WBC. Culture is pending. However this will be adequately treated most likey with therapy from his aspiration. Status at Discharge Cognitive/behavioral status at discharge: oriented Functional status at discharge: independent ambulation Overall status at discharge: patient is back to baseline Time Spent with Patient Time spent: Greater than 30 minutes Exam Vital Signs (past 8 hours): - 01/07/21 06:37 01/07/21 07:57 Temperature 98.7 F 98.3 F Pulse Rate 61 72 Respiratory Rate 17 16 Blood Pressure 148/71 H 137/70 Pulse Oximetry 96 98 Fraction of Inspired Oxygen 100 Oxygen Delivery Method Room Air Oxygen Flow Rate 0 Narrative Exam Narrative: GENERAL APPEARANCE: Elderly gentleman upright in hospital chair, no acute distress. SKIN: Inspection of the skin reveals no rashes, ulcerations or petechiae. HEENT: Normocephalic atraumatic, extraocular muscles are intact, oropharynx is clear and mucous membranes are moist, neck is supple without adenopathy. NECK: Supple and symmetric. There was no thyroid enlargement, and no tenderness, or masses were felt. CHEST: Normal AP diameter and normal contour without any kyphoscoliosis. LUNGS: Auscultation of the lungs revealed no wheezes, rhonchi, or rales. CARDIOVASCULAR: There was a regular rate and rhythm without any murmurs, gal lops, rubs. Peripheral pulses were 2+ and symmetric. ABDOMEN: Soft and nontender without distention. MUSCULOSKELETAL: There was no tenderness or effusions noted. Muscle strength and tone were normal. EXTREMITIES: No cyanosis, clubbing or edema. NEUROLOGIC: alert, oriented. No focal deficits. Objective Labs Result Diagrams: 01/06/21 04:50 01/06/21 04:50 [facility] Medical History Hypertension Family History Other Patient unable to provide medical history Social History household members: spouse Smoking Status: Unknown if ever smoked Discharge Plan Discharge Plan Patient Disposition: Home Provider Discharge Comment: Admitted to the hospital after an overdose and carbon monoxide poisoning. You were supported and extubated. Following extubation you did well. You did develop a pneumonia for which you should complete antibiotics for an additional 3 days. I do recommend you see a psychiatrist or behavioral health as an outpatient, and I recommend you see your PCP as soon as possible. Discharge orders & Medications Prescriptions: New amoxicillin-pot clavulanate [Augmentin] 875-125 mg Tablet 1 tab PO BID 3 Days Qty: 6 RF: 0 No Action No Known Home Medications RF: 0 Diet/Activity/Treatments Diet: Diet as Tolerated Activity: As tolerated Visit Report/Discharge Packet Instructions: DI for Pneumonia -- Adult, DI for Carbon Monoxide Poisoning, A moxicillin, How to Create a Suicide Prevention Safety Plan Quality VTE Deep Vein Thrombosis/Pulmonary Embolism Present on Admission: No
--- NOTE | 2021-01-07 09:24 | PC.NURSE ---
Discharge Note Pt discharged to home with daughter, Opal, at 0900. Escorted to hospital exit via wheelchair by staff member. Pt denies suicidal ideation and reports that he has all the resources he needs after discussion with rBynn GALINDO yesterday, declines any further needs. Pt reports plans to make outpatient psychiatric appointment for himself and has plans to visit his who is currently in an inpatient facility. All belongings with pt including clothing, shoes, and bag.
--- NOTE | 2021-01-07 15:28 | CM.DPNOTE ---
DC Note DC w/family today, indicates no further needs from this [employer] MAN JW
== END 2021-01-07 09:00 | disposition home or self-care (01) | DRG 917 ==
LOC: ED 10:28 → AC 10:34 → ICU 11:06
PROVIDERS: Internal Medicine; Nurse Practitioner Family; Admitting Provider Internal Medicine; Emergency Provider Emergency Medicine; Referring Provider Emergency Medicine; Visit Provider Internal Medicine
DX: T58.12XA Toxic effect of carbon monoxide from utility gas, intentional self-harm, initial encounter (principal); J96.01 Acute respiratory failure with hypoxia; J69.0 Pneumonitis due to inhalation of food and vomit; R45.851 Suicidal ideations; T83.83XA Hemorrhage due to genitourinary prosthetic devices, implants and grafts, initial encounter; T42.4X2A Poisoning by benzodiazepines, intentional self-harm, initial encounter; Y92.008 Other place in unspecified non-institutional (private) residence as the place of occurrence of the external cause; Z20.822 Contact with and (suspected) exposure to COVID-19; I10 Essential (primary) hypertension; F32.9 Major depressive disorder, single episode, unspecified; R31.0 Gross hematuria
CPT/HCPCS: 36415; 36592; 36600; 51701; 70450; 71045; 80048; 80053; 80305; 80320; 80329; 81001; 82375; 82550; 82805; 82962; 83605; 83690; 83880; 84484; 85025; 87070; 87077; 87086; 87147; 87186; 87205; 87635; 87797; 93005; 94002; 94003; 94010; 94799; 96365; 96366; 96368; 97161; 99285; 99291; 99292; C9803; G0480; J1650; J2060; J2543; J2704; J3010